=== PATIENT | female | born 1980 | race Two or more races ===

== ENCOUNTER 2016-11-20 11:13 | Emergency (ER) | payer OTHER ==
[~2016-11-20] VITALS: Ht 152.4 cm; Wt 61.2 kg
--- NOTE | 2016-11-20 11:39 | ED.ADGEN ---
Past History Past Medical History: Anxiety, Depression Past Surgical History: Appendectomy, Cholecystectomy Alcohol Use: None Drug Use: None Adult General Chief Complaint Chief Complaint ABDOMINAL PAIN HPI HPI Patient is a 35 year old F who presents with abdominal pain, vomiting and diarrhea since this AM. "similar to previous bowel obstructions" Severe R sided abdominal pain. Pt has had appendectomy, cholecystectomy, and R colon resection ? noncancerous tumor. Since then has had episodes of bowel obstruction from [place] per pt. Last admission approx 1 year ago for same symptoms Review of Systems Review of Systems Constitutional: Denies fever or chills Eyes: Denies change in visual acuity, redness, or eye pain HENT: Denies nasal congestion or sore throat Respiratory: Denies cough or shortness of breath Cardiovascular: No additional information not addressed in HPI GI: abdominal pain , vomiting and diarrhea : Denies dysuria or hematuria Musculoskeletal: Denies joint pain [ Integument: Denies rash or skin lesions Neurologic: Denies headache, focal weakness or sensory changes Current Medications Current Medications Current Medications Medications (Trade) Dose Ordered Sig/Elin Start Time Stop Time Status Last Admin Dose Admin Iohexol (Omnipaque 300 Mg/ml) 75 ml 1X ONCE 11/20/16 14:15 11/20/16 14:16 DC 11/20/16 14:44 75 ML Morphine Sulfate (Morphine 4mg Syringe) 4 mg 1X ONCE 11/20/16 18:15 11/20/16 18:16 DC 11/20/16 18:05 4 MG Ondansetron HCl (Zofran) 4 mg 1X ONCE 11/20/16 16:40 11/20/16 16:41 DC 11/20/16 16:28 4 MG Sodium Chloride 1,000 ml @ 1,000 mls/hr 1X ONCE 11/20/16 11:45 11/20/16 12:44 DC 11/20/16 11:55 1,000 MLS/HR Allergies Allergies Allergies Coded Allergies Type Severity Reaction Last Updated Verified metoclopramide Allergy Severe Shortness of Air 11/11/15 Yes Physical Exam Physical Exam Constitutional: Well developed, well nourished, HENT: Normocephalic, atraumatic, bilateral external ears normal, oropharynx moist, no oral exudates, nose normal. Eyes: PERRL, EOMI, conjunctiva normal, no discharge. Neck: Normal range of motion, no tenderness, supple, no stridor. Cardiovascular:Heart rate regular rhythm, no murmur Lungs & Thorax: Bilateral breath sounds clear to auscultation Abdomen: Hypoactive BS mild distension, soft RUQ, RLQ tenderness, no guarding, no rebound Skin: Warm, dry, no erythema, no rash. Back: No tenderness, no CVA tenderness. Extremities: No tenderness, no cyanosis, no clubbing, ROM intact, no edema. Neurologic: Alert and oriented X 3, normal motor function, normal sensory function, no focal deficits noted. Psychologic: Affect normal, judgement normal, mood normal. Current Patient Data Vital Signs Vital Signs Date Time Temp Pulse Resp B/P (MAP) Pulse Ox O2 Delivery O2 Flow Rate FiO2 11/20/16 18:05 16 11/20/16 12:55 83 102/66 (78) 100 11/20/16 11:24 98.2 Room Air Lab Results Laboratory Tests Test 11/20/16 11:55 11/20/16 12:25 11/20/16 12:27 White Blood Count 8.9 x10^3/uL (4.0-11.0) Red Blood Count 5.32 x10^6/uL (3.50-5.40) Hemoglobin 15.2 g/dL (12.0-15.5) Hematocrit 46.2 % (36.0-47.0) Mean Corpuscular Volume 87 fL (79-100) Mean Corpuscular Hemoglobin 29 pg (25-35) Mean Corpuscular Hemoglobin Concent 33 g/dL (31-37) Red Cell Distribution Width 13.5 % (11.5-14.5) Platelet Count 233 x10^3/uL (140-400) Neutrophils (%) (Auto) 84 % (31-73) H Lymphocytes (%) (Auto) 13 % (24-48) L Monocytes (%) (Auto) 2 % (0-9) Eosinophils (%) (Auto) 0 % (0-3) Basophils (%) (Auto) 0 % (0-3) Neutrophils # (Auto) 7.5 x10^3uL (1.8-7.7) Lymphocytes # (Auto) 1.1 x10^3/uL (1.0-4.8) Monocytes # (Auto) 0.2 x10^3/uL (0.0-1.1) Eosinophils # (Auto) 0.0 x10^3/uL (0.0-0.7) Basophils # (Auto) 0.0 x10^3/uL (0.0-0.2) Lactic Acid Level 0.9 mmol/L (0.4-2.0) Urine Collection Type Unknown Urine Color Flora Urine Clarity Cloudy Urine pH 5.5 Urine Specific [place] 1.020 Urine Protein 30 mg/dl (NEG-TRACE) Urine Glucose (UA) Neg mg/dL (NEG) Urine Ketones (Stick) 40 mg/dL (NEG) Urine Blood Large (NEG) Urine Nitrite Neg (NEG) Urine Bilirubin Neg (NEG) Urine Urobilinogen Dipstick 0.2 mg/dL (0.2 mg/dL) Urine Leukocyte Esterase Neg (NEG) Urine RBC >40 /HPF (0-2) Urine WBC Occ /HPF (0-4) Urine Squamous Epithelial Cells Occ /LPF Urine Bacteria Few /HPF (0-FEW) Urine Mucus Marked /LPF Maternal Serum HCG Beta Subunit 1 mIU/mL (0-6) Sodium Level 138 mmol/L (136-145) Potassium Level 4.0 mmol/L (3.5-5.1) Chloride Level 103 mmol/L (98-107) Carbon Dioxide Level 25 mmol/L (21-32) Anion Gap 10 (6-14) Blood Urea Nitrogen 14 mg/dL (7-20) Creatinine 0.7 mg/dL (0.6-1.0) Estimated GFR (Cockcroft-Gault) 94.2 BUN/Creatinine Ratio 20 (6-20) Glucose Level 134 mg/dL (70-99) H Calcium Level 9.0 mg/dL (8.5-10.1) Total Bilirubin 0.5 mg/dL (0.2-1.0) Aspartate Amino Transferase (AST) 21 U/L (15-37) Alanine Aminotransferase (ALT) 35 U/L (14-59) Alkaline Phosphatase 74 U/L (46-116) Total Protein 7.7 g/dL (6.4-8.2) Albumin 4.0 g/dL (3.4-5.0) Albumin/Globulin Ratio 1.1 (1.0-1.7) Lipase 113 U/L (73-393) EKG EKG [] Radiology/Procedures Radiology/Procedures [address] [place] [id number] IMAGING REPORT Signed PATIENT: JUJU KAUFFMAN ACCOUNT: [id number] : 1980 LOCATION: ER AGE: 35 SEX: F EXAM STATUS: DEP ER ORD. PHYSICIAN: DEN CAGLE MD REASON: Check NG tube placement PROCEDURE: CHEST AP ONLY Indication: NG tube placement. Time of exam 1849 hours. NG tube passes below the diaphragm and has the tip directed towards the right in the region of the gastric body. The lungs are clear. No effusion or pneumothorax is seen. Impression: Satisfactory NG tube placement. DICTATED AND SIGNED BY: KELLEY JONES MD DATE: 11/21/16717 CC: DEN CAGLE MD; MAIDA YAN DO, MPH ~ [address] [address] IMAGING REPORT Signed PATIENT: JUJU KAUFFMAN ACCOUNT: [id number] : 1980 LOCATION: ER AGE: 35 SEX: F EXAM STATUS: REG ER ORD. PHYSICIAN: DEN CAGLE MD REASON: abdominal pain PROCEDURE: CT ABD PELV W/ IV CONTRST ONLY Exam performed: CT abdomen pelvis with contrast. History: Abdominal pain since this morning. Patient had appendix removed 11 years ago with partial colectomy. Date of service: 11/20/16. Comparison: CT abdomen pelvis from 11/11/15. Technique: Contiguous helical acquisitions are obtained through the abdomen and pelvis during intravenous administration of 75 cc of Omnipaque 300. Sagittal and coronal reformatted images are obtained and reviewed. Findings: There is mild to moderate dilation of the small bowel extending up to the anastomosis in the right mid abdomen. The colon is relatively decompressed. There is no pneumoperitoneum. Lung bases are clear. The visualized heart is normal. The liver is normal in size and attenuation. There is a low attenuating 9 mm abnormality in the subdiaphragmatic right hepatic lobe this was not clearly identified on the previous exam. The spleen and pancreas are normal. Cholecystectomy. Both adrenal glands and bilateral kidneys are normal in size with symmetric excretion of contrast via both kidneys. There is no hydronephrosis or nephrolithiasis. No perinephric stranding. Aorta is normal in caliber without aneurysm. No retroperitoneal or mesenteric lymphadenopathy. The urinary bladder is partially decompressed. The uterus is retroverted. No adnexal masses or fluid. No free or focal fluid collections or pelvic lymphadenopathy seen. Interrogation of bone windows demonstrates no bony abnormalities. Impression: 1. Findings compatible with small bowel obstruction with apparent transition in the central right abdomen at the level of anastomosis. No evidence of pneumoperitoneum. 2. Low attenuating subcentimeter abnormality in the subdiaphragmatic right hepatic lobe not clearly previously identified probably secondary to noncontrast technique. This could possibly represent a cyst or hemangioma, however is indeterminate. Triple phase contrast-enhanced CT or MRI may further characterize this lesion. PQRS Compliance Statement: One or more of the following individualized dose reduction techniques were utilized for this examination: 1. Automated exposure control 2. Adjustment of the mA and/or kV according to patient size 3. Use of iterative reconstruction technique The results were given to Dr. Cagle in the ER soon of the completion of the study at 3:17 PM [] Course & Med Decision Making Course & Med Decision Making Pertinent Labs and Imaging studies reviewed. (See chart for details) Vitals reviewed and stable Pt with small bowel obstruction on CT. Placed NGT in ER discussed with pt findings of labs and CT and recommend admission and pt agrees Called Dr. Cardenas medicine at [facility] and accepted pt for admission Called Dr. Ortiz surgery and made aware of pt and consult will see at [place] Pt medically stable for transfer and admission to [facility] Final Impression Final Impression SMALL BOWEL OBSTRUCTION[] Problems: Dragon Disclaimer Dragon Disclaimer This electronic medical record was generated, in whole or in part, using a voice recognition dictation system. DEN CAGLE MD November 20, 2016 11:39
[2016-11-20] MEDS ORDERED: IV NORMAL SALINE 1,000ML 1,000 ML IV ONE (11:45)
[2016-11-20 12:17] LABS: BASO % 0 % (0-3); EOS % 0 % (0-3); HEMATOCRIT 46.2 % (36.0-47.0); HEMOGLOBIN 15.2 g/dL (12.0-15.5); LYMPH # 1.1 x10^3/uL (1.0-4.8); LYMPH % 13 % (24-48); MEAN CORPUSCULAR HEMOGLOBIN 29 pg (25-35); MEAN CORPUSCULAR HGB CONC 33 g/dL (31-37); MEAN CORPUSCULAR VOLUME 87 fL (79-100); MONO # 0.2 x10^3/uL (0.0-1.1); MONO % 2 % (0-9); NEUT # 7.5 x10^3uL (1.8-7.7); NEUT % 84 % (31-73); PLATELET COUNT 233 x10^3/uL (140-400); RED BLOOD COUNT 5.32 x10^6/uL (3.50-5.40); RED CELL DISTRIBUTION WIDTH 13.5 % (11.5-14.5); WHITE BLOOD COUNT 8.9 x10^3/uL (4.0-11.0)
[2016-11-20] MEDS ORDERED: MORPHINE SULFATE 4 MG/ML DISP.SYRIN. IM ONE (12:45)
[2016-11-20] MEDS ORDERED: ONDANSETRON PF 4 MG/2 ML VIAL. IV ONE ×2 (12:45→16:40)
[2016-11-20 12:55] VITALS: BP 102/66
[2016-11-20] MEDS ORDERED: MORPHINE SULFATE 4 MG/ML DISP.SYRIN. IV ONE ×2 (13:00→18:15)
[2016-11-20 13:03] LABS: ALBUMIN/GLOBULIN RATIO 1.1 (1.0-1.7); CREATININE 0.7 mg/dL (0.6-1.0); GFR 94.2; TOTAL BILIRUBIN 0.5 mg/dL (0.2-1.0); TOTAL PROTEIN 7.7 g/dL (6.4-8.2)
[2016-11-20 13:06] LABS: BACTERIA,URINE FEW /HPF (0-FEW); BILIRUBIN,URINE NEG (NEG); CLARITY,URINE CLOUDY; COLOR,URINE AMBER; GLUCOSE,URINE NEG (NEG); NITRITE,URINE NEG (NEG); RBC,URINE >40 /HPF (0-2); SQUAMOUS EPITHELIAL CELL,UR OCC /LPF; UROBILINOGEN,URINE 0.2 mg/dL (0.2 mg/dL); WBC,URINE OCC /HPF (0-4)
[2016-11-20] MEDS ORDERED: IOHEXOL 300 MG/ML 75 ML VIAL. IV ONE (14:15)
--- NOTE | 2016-11-20 15:22 | RAD ---
Exam performed: CT abdomen pelvis with contrast. History: Abdominal pain since this morning. Patient had appendix removed 11 years ago with partial colectomy. Date of service: 11/20/16. Comparison: CT abdomen pelvis from 11/11/15. Technique: Contiguous helical acquisitions are obtained through the abdomen and pelvis during intravenous administration of 75 cc of Omnipaque 300. Sagittal and coronal reformatted images are obtained and reviewed. Findings: There is mild to moderate dilation of the small bowel extending up to the anastomosis in the right mid abdomen. The colon is relatively decompressed. There is no pneumoperitoneum. Lung bases are clear. The visualized heart is normal. The liver is normal in size and attenuation. There is a low attenuating 9 mm abnormality in the subdiaphragmatic right hepatic lobe this was not clearly identified on the previous exam. The spleen and pancreas are normal. Cholecystectomy. Both adrenal glands and bilateral kidneys are normal in size with symmetric excretion of contrast via both kidneys. There is no hydronephrosis or nephrolithiasis. No perinephric stranding. Aorta is normal in caliber without aneurysm. No retroperitoneal or mesenteric lymphadenopathy. The urinary bladder is partially decompressed. The uterus is retroverted. No adnexal masses or fluid. No free or focal fluid collections or pelvic lymphadenopathy seen. Interrogation of bone windows demonstrates no bony abnormalities. Impression: 1. Findings compatible with small bowel obstruction with apparent transition in the central right abdomen at the level of anastomosis. No evidence of pneumoperitoneum. 2. Low attenuating subcentimeter abnormality in the subdiaphragmatic right hepatic lobe not clearly previously identified probably secondary to noncontrast technique. This could possibly represent a cyst or hemangioma, however is indeterminate. Triple phase contrast-enhanced CT or MRI may further characterize this lesion. PQRS Compliance Statement: One or more of the following individualized dose reduction techniques were utilized for this examination: 1. Automated exposure control 2. Adjustment of the mA and/or kV according to patient size 3. Use of iterative reconstruction technique The results were given to Dr. Cagle in the ER soon of the completion of the study at 3:17 PM
--- NOTE | 2016-11-20 18:25 | ACF ---
Admission Criteria Forms ABDOMINAL PAIN Clinical Indications for Admission to Inpatient Care (Place 'X' for any and all applicable criteria): Admission is indicated for ANY ONE of the following(1)(2)(3)(4)(5): [X]I. Inpatient admission required rather than observation care (Also use Abdominal Pain: Observation Care, as appropriate) because of ANY ONE of the following: [ ]a) Severe pain requiring acute inpatient management [X]b) Identification of etiology/finding that requires inpatient care (eg, aortic dissection, free air) [ ]c) Absent bowel sounds with complete ileus(6) [ ]d) Suspected toxic megacolon [ ]e) Severe electrolyte abnormalities requiring inpatient care [ ]f) High fever or infection requiring inpatient admission as indicated by ANY ONE of following(7)(8): [ ] i) Appropriate outpatient or observational care antimicrobial treatment unavailable, not effective, or not feasible [ ] ii) Documented bacteremia [ ] iii) Temperature > 104.9 degrees F (oral) [ ] iv) T >103.1 F (oral) or < 96.8 F(rectal) that does not respond to all emergency treatment measures [ ]g) Signs of intestinal obstruction [B] [ ]h) Hemodynamic instability [ ]i) IV fluid to replace significant ongoing losses (greater than 3 L/m2 per day) (12)(13) [ ]j) Percutaneous or open drainage (eg, abscess, biliary tract ) procedures [ ]k) Parenteral nutrition regimen that must be implemented on inpatient basis [X]l) Other condition,treatment or monitoring requiring inpatient admission. [ ]II. Peritoneal signs present [ ]III. Surgery needed that cannot be performed on an ambulatory basis. [ ]IV. Evaluation requires patient to not eat or drink for extended period ( eg, more than 24 hours). [ ]V. Contraindications and/or Inappropriate clinical situations for Observational Care in patients with abdominal pain, when ANY ONE of the following is required: [ ]a) Thorough evaluation is required to prevent catastrophic events due to delays in diagnosing (e.g.Mesenteric ischemia) 1,3 [ ]b) Patient with severe pathology or with chronic symptoms unlikely to improve in the ED stay (3) [ ]. General contraindications and/or Inappropriate clinical situations for Observational Care in patients with abdominal pain, when ANY ONE of the following is required: [ ]a) Prediction of prolongation of LOS based on ANY ONE of the following may be considered as a contraindication for observational care 2, 3, 4, 5, 6, 7, 8, 9, 10, 11 [ ]i) Age > 65 yrs. [ ]ii) Patient arriving by ambulance [ ]iii) Patient with high acuity [ ]iv) Patient requiring vital sign monitoring [ ]v) Patient on IV medication [ ]b) Systolic blood pressures 180mmHg 3,12 [ ]c) Patient with altered mental status including delirium and other alteration of consciousness, (3) [ ]d) Patient whose discharge disposition will be to a detention home or rehabilitation home should not be managed in Emergency Department Observation Unit. CMS rule requires 3 days hospital stay before such placement.3,13 [ ]e) Patient with failure to thrive due to broad array of etiologies 3,16,17 [ ]f) Inability to ambulate 3,14 Extended stay beyond goal length of stay may be needed for(2)(3): [ ]a) Persistent abdominal pain with suspected intra-abdominal process [ ]b) Diagnosed condition requiring continued stay (e.g., pancreatitis, complicated diverticulitis) [ ]c) Surgery (e.g., colectomy) The original [facility] content created by [employer] has been revised. The portions of the content which have been revised are identified through the use of italic text or in bold, and [facility] has neither reviewed nor approved the modified material.All other unmodified content is copyright [facility]. Please see references footnoted in the original [facility] edition 2016 Admission Criteria Met?: Yes MOOK MUNOZ November 20, 2016 18:25
--- NOTE | 2016-11-21 07:21 | RAD ---
Indication: NG tube placement. Time of exam 1849 hours. NG tube passes below the diaphragm and has the tip directed towards the right in the region of the gastric body. The lungs are clear. No effusion or pneumothorax is seen. Impression: Satisfactory NG tube placement.
== END 2016-11-20 20:20 | disposition short-term general hospital (02) ==
LOC: ER 11:13
DX: K56.69 Other intestinal obstruction (principal); Z90.49 Acquired absence of other specified parts of digestive tract; Z88.8 Allergy status to other drugs, medicaments and biological substances
CPT/HCPCS: 36415; 43752; 71010; 74177; 80053; 81001; 83605; 83690; 84702; 85027; 87040; 96361; 96372; 96374; 96375; 96376; 99285; J2270; J2405; Q9967; J7030

== ENCOUNTER 2016-12-18 15:21 | Emergency (ER) | payer OTHER ==
[~2016-12-18] VITALS: Ht 152.4 cm; Wt 58.1 kg
[2016-12-18 15:30] VITALS: BP 112/71
--- NOTE | 2016-12-18 16:08 | PHYS DOC ---
General Chief Complaint: ABDOMINAL PAIN Stated Complaint: ABDOMINAL PAIN Time Seen by MD: 15:52 Source: patient Exam Limitations: language barrier (Nigerian is her second language she speaks primarily Vincentian) Problems: History of Present Illness Initial Comments Patient is a 35-year-old female who comes to the ED for evaluation of abdominal discomfort. Patient has history of small bowel obstructions, she was seen here November 10 and November 20 of this year diagnosed with small bowel obstructions and transferred to [facility] each time for further evaluation. Patient follows at [facility] so she was discharged each time to follow-up on post. Patient states that today when she went to [facility] to get specialty referrals she was sent to the ED for further evaluation. Here in the ED she denies any new or progressive symptoms. She has tenderness at the suprapubic region which has been chronic but has no abdominal distention and burping discomfort retching or vomiting. She 's been taking meds as prescribed she has no fever chills sweats or myalgias. My discussions with her it is apparent that she has no new or acute symptoms. I discussed emergency department evaluation, I advised her that we could repeat her CT scan and blood work which has been done twice this past month already but that would be low yield for her. In the absence of acute symptoms which he needs his general surgical or gastrointestinal evaluation to determine the etiologies and corrective treatment for her recurrent small bowel obstructions. She does refuse acute evaluation in the ED based upon this discussion and is in agreement that she needs to see specialists. It is possible that the language barrier may have added some confusion to the situation causing her to be sent back to the emergency department when it was unnecessary. Timing/Duration: changing over time Severity: mild Modifying Factors: improves with other Associated Symptoms: other Allergies: Coded Allergies: metoclopramide (Verified Allergy, Severe, Shortness of Air, 11/11/15) Past Medical History Medical History: other (anxiety, depression, carcinoma) Surgical History: cancer surgery (right colectomy for carcinoma 2005 and no chemotherapy or radiation), cholecystectomy Social History Smoker: non-smoker Alcohol: none Drugs: none Review of Systems Constitutional: denies chills, denies fever Respiratory: denies cough, denies shortness of breath Cardiovascular: denies chest pain, denies palpitations Gastrointestinal: see HPI Genitourinary: denies dysuria, denies frequency, denies hematuria Musculoskeletal: denies back pain, denies joint swelling, denies neck pain Psychiatric/Neurological: denies headache, denies numbness, denies paresthesia Physical Exam General Appearance: WD/WN, no apparent distress Eyes: bilateral eye normal inspection, bilateral eye PERRL, bilateral eye EOMI Ear, Nose, Throat: hearing grossly normal, normal ENT inspection Neck: full range of motion, supple Respiratory: lungs clear, normal breath sounds Cardiovascular: normal peripheral pulses, regular rate, rhythm Gastrointestinal: normal bowel sounds, soft (nondistended, mild suprapubic tenderness no rebound guarding or mass bowel sounds are normal no organomegaly noted) Back: no CVA tenderness, no vertebral tenderness Extremities: non-tender, normal inspection Neurologic/Psychiatric: basketball 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 Unfortunately she needs to return to [facility] so she can get appropriate referrals she expressed agreement and understanding of this. Departure Time of Disposition: 16:06 Disposition: 01 HOME, SELF-CARE Diagnosis: Screening medical exam, h/o SBO Condition: GOOD Additional Instructions: As discussed no acute workup is necessary as you're not currently having symptoms of bowel obstruction. Continue current medications and dietary changes. Follow-up at [facility] to request further outpatient specialist workup (general surgery, GI) to determine cause and course of treatment for your recent bowel obstructions. Return to the ED with new or returning symptoms. RAMAN CERNA DO Dec 18, 2016 16:08
== END 2016-12-18 16:29 | disposition home or self-care (01) ==
LOC: ER 15:21
DX: Z00.8 Encounter for other general examination (principal); K56.69 Other intestinal obstruction; Z90.49 Acquired absence of other specified parts of digestive tract; Z90.710 Acquired absence of both cervix and uterus; Z88.8 Allergy status to other drugs, medicaments and biological substances
CPT/HCPCS: 99281

== ENCOUNTER 2017-03-20 08:40 | Emergency (ER) | payer OTHER ==
[~2017-03-20] VITALS: Ht 152.4 cm; Wt 58.1 kg
--- NOTE | 2017-03-20 09:15 | PHYS DOC ---
Past History Past Medical History: Cancer Past Surgical History: Appendectomy, Cholecystectomy, Other Alcohol Use: None Drug Use: None Adult General Chief Complaint Chief Complaint: NAUSEA/VOMITING/DIARRHEA HPI HPI Patient is a 36 year old F who presents with nausea/vomiting/diarrhea and abdominal pain. Patient states that yesterday she developed abdominal pain with nausea/vomiting/diarrhea. Patient denies any fevers. Patient denies any chest pain or shortness of breath. Patient denies any dysuria. Patient states she is a history of colectomy secondary to cancer. 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 Review of Systems Review of Systems GEN: Denies fevers, chills, sweats HEENT: Denies blurred vision, sore throat CV: Denies chest pain RESP: Denies shortness of air, cough GI: n/v/d with abdominal pain NEURO: Denies confusion, dizziness MSK: Denies weakness, joint pain/swelling Allergies Allergies Allergies Coded Allergies Type Severity Reaction Last Updated Verified metoclopramide Allergy Severe Shortness of Air 03/20/17 Yes Physical Exam Physical Exam GEN.: No apparent distress. Alert and oriented. HEENT: Head is normocephalic, atraumatic NECK: Supple. LUNGS: CTAB. HEART: RRR, S1, S2 present. Peripheral pulses intact ABDOMEN: Soft, generalized abdominal tenderness, no focal tenderness, no rebound tenderness, no distention. Hypoactive bowel sounds. EXTREMITIES: Without any cyanosis. NEUROLOGIC: Normal speech, normal tone PSYCHIATRIC: Normal affect, normal mood. SKIN: No ulcerations Current Patient Data Vital Signs Vital Signs Date Time Temp Pulse Resp B/P (MAP) Pulse Ox O2 Delivery O2 Flow Rate FiO2 03/20/17 08:51 97.8 87 17 98 Room Air Lab Results Laboratory Tests Test 03/20/17 09:10 03/20/17 09:52 03/20/17 10:07 White Blood Count 5.9 x10^3/uL Red Blood Count 5.27 x10^6/uL Hemoglobin 15.2 g/dL Hematocrit 45.7 % Mean Corpuscular Volume 87 fL Mean Corpuscular Hemoglobin 29 pg Mean Corpuscular Hemoglobin Concent 33 g/dL Red Cell Distribution Width 12.8 % Platelet Count 184 x10^3/uL Neutrophils (%) (Auto) 85 % Lymphocytes (%) (Auto) 11 % Monocytes (%) (Auto) 3 % Eosinophils (%) (Auto) 1 % Basophils (%) (Auto) 0 % Neutrophils # (Auto) 5.1 x10^3uL Lymphocytes # (Auto) 0.6 x10^3/uL Monocytes # (Auto) 0.2 x10^3/uL Eosinophils # (Auto) 0.0 x10^3/uL Basophils # (Auto) 0.0 x10^3/uL Sodium Level 138 mmol/L Potassium Level 3.6 mmol/L Chloride Level 101 mmol/L Carbon Dioxide Level 28 mmol/L Anion Gap 9 Blood Urea Nitrogen 11 mg/dL Creatinine 0.8 mg/dL Estimated GFR (Cockcroft-Gault) 80.3 BUN/Creatinine Ratio 14 Glucose Level 105 mg/dL Calcium Level 9.0 mg/dL Total Bilirubin 0.6 mg/dL Aspartate Amino Transf (AST/SGOT) 27 U/L Alanine Aminotransferase (ALT/SGPT) 41 U/L Alkaline Phosphatase 115 U/L Total Protein 7.7 g/dL Albumin 3.9 g/dL Albumin/Globulin Ratio 1.0 Lipase 76 U/L Urine Collection Type Unknown Urine Color Yellow Urine Clarity Hazy Urine pH 8.5 Urine Specific [place] 1.015 Urine Protein Trace Urine Glucose (UA) Neg mg/dL Urine Ketones (Stick) 40 mg/dL Urine Blood Neg Urine Nitrite Neg Urine Bilirubin Neg Urine Urobilinogen Dipstick 0.2 mg/dL Urine Leukocyte Esterase Neg Urine RBC Rare /HPF Urine WBC Rare /HPF Urine Squamous Epithelial Cells Many /LPF Urine Bacteria Few /HPF Urine Mucus Marked /LPF Bedside Urine HCG, Qualitative hcg negative Current Medications Medications (Trade) Dose Ordered Sig/Elin Route PRN Reason Start Time Stop Time Status Last Admin Dose Admin Sodium Chloride 1,000 ml @ 1,000 mls/hr 1X ONCE IV 03/20/17 09:30 03/20/17 10:30 DC 03/20/17 09:21 Fentanyl Citrate (Fentanyl 2ml Vial) 50 mcg 1X ONCE IV 03/20/17 09:30 03/20/17 09:31 DC 03/20/17 09:22 Ondansetron HCl (Zofran) 4 mg 1X ONCE IV 03/20/17 09:30 03/20/17 09:31 DC 03/20/17 09:22 Iohexol (Omnipaque 300 Mg/ml) 75 ml 1X ONCE IV 03/20/17 09:30 03/20/17 09:31 DC 03/20/17 10:11 Fentanyl Citrate (Fentanyl 2ml Vial) 50 mcg 1X ONCE IV 03/20/17 11:15 03/20/17 11:16 DC 03/20/17 10:57 Ondansetron HCl (Zofran) 4 mg 1X ONCE IV 03/20/17 11:15 03/20/17 11:16 DC 03/20/17 10:57 Lidocaine HCl 15 ml STK-MED ONCE .ROUTE 03/20/17 11:07 03/20/17 11:08 DC EKG EKG [] Radiology/Procedures Radiology/Procedures CT abd and pelvis: IMPRESSION: Mid to distal small bowel obstruction with a transition point anteriorly in the upper pelvis, likely due to an adhesion.[] Course & Med Decision Making Course & Med Decision Making Pertinent Labs and Imaging studies reviewed. (See chart for details) ED course: Patient was seen and examined emergency room CBC, CMP, UA, and urine break, lipase, CT scan and pelvis were ordered 1103: Patient was reevaluated and updated on CT findings for small bowel ejection and discussed the need to place NG tube and transferred to [facility]. Patient is comfortable with having an NG tube placed and being transferred. 1153: Discussed CC/HP/PMH with Dr. GRIMM and recommends admit [] 1153: Dr. Nguyen was paged [] Dragon Disclaimer Dragon Disclaimer This chart was dictated in whole or in part using Voice Recognition software in a busy, high-work load, and often noisy Emergency Department environment. It may contain unintended and wholly unrecognized errors or omissions. Departure Departure: Impression: Primary Impression: Small bowel obstruction Disposition: XFER SHT-TRM HOSP (Dr Grimm as accepting ) Condition: STABLE Referrals: MAIDA YAN DO, MPH (PCP) GUILLE TODD DO Mar 20, 2017 09:15
[2017-03-20 09:22] LABS: BASO % 0 % (0-3); EOS % 1 % (0-3); HEMATOCRIT 45.7 % (36.0-47.0); HEMOGLOBIN 15.2 g/dL (12.0-15.5); LYMPH # 0.6 x10^3/uL (1.0-4.8); LYMPH % 11 % (24-48); MEAN CORPUSCULAR HEMOGLOBIN 29 pg (25-35); MEAN CORPUSCULAR HGB CONC 33 g/dL (31-37); MEAN CORPUSCULAR VOLUME 87 fL (79-100); MONO # 0.2 x10^3/uL (0.0-1.1); MONO % 3 % (0-9); NEUT # 5.1 x10^3uL (1.8-7.7); NEUT % 85 % (31-73); PLATELET COUNT 184 x10^3/uL (140-400); RED BLOOD COUNT 5.27 x10^6/uL (3.50-5.40); RED CELL DISTRIBUTION WIDTH 12.8 % (11.5-14.5); WHITE BLOOD COUNT 5.9 x10^3/uL (4.0-11.0)
[2017-03-20] MEDS ORDERED: IV NORMAL SALINE 1,000ML 1,000 ML IV ONE (09:30)
[2017-03-20] MEDS ORDERED: fentaNYL PF 100 MCG/2 ML VIAL IV ONE ×2 (09:30→11:15)
[2017-03-20] MEDS ORDERED: ONDANSETRON PF 4 MG/2 ML VIAL. IV ONE ×2 (09:30→11:15)
[2017-03-20] MEDS ORDERED: IOHEXOL 300 MG/ML 75 ML VIAL. IV ONE (09:30)
[2017-03-20 09:37] LABS: ALBUMIN 3.9 g/dL (3.4-5.0); CREATININE 0.8 mg/dL (0.6-1.0); GFR 80.3; POTASSIUM 3.6 mmol/L (3.5-5.1); TOTAL BILIRUBIN 0.6 mg/dL (0.2-1.0); TOTAL PROTEIN 7.7 g/dL (6.4-8.2)
[2017-03-20 10:22] LABS: BILIRUBIN,URINE NEG (NEG); CLARITY,URINE HAZY; COLOR,URINE YELLOW; GLUCOSE,URINE NEG (NEG); UROBILINOGEN,URINE 0.2 mg/dL (0.2 mg/dL)
[2017-03-20 10:23] LABS: BACTERIA,URINE FEW /HPF (0-FEW); NITRITE,URINE NEG (NEG); RBC,URINE RARE /HPF (0-2); SQUAMOUS EPITHELIAL CELL,UR MANY /LPF; WBC,URINE RARE /HPF (0-4)
--- NOTE | 2017-03-20 10:58 | RAD ---
CT of the abdomen and pelvis with contrast, 03/20/2017: History: Nausea, vomiting, diarrhea Multidetector CT imaging was performed following an IV bolus injection of iodinated contrast material. Comparison is made to a study from 11/20/2016. The gallbladder is surgically absent. No hepatic abnormality is seen. The pancreas shows no abnormality. The spleen is within normal limits in size. No renal or adrenal abnormality is detected. No abdominal or pelvic adenopathy is detected. The uterus is not enlarged. The ovaries contain tiny follicular cysts. The stomach and duodenum are not dilated. There is moderate distention of mid small bowel loops with fluid and gas. A transition point is evident anteriorly in the upper pelvis, best seen on coronal images 14 and 15 of series #3. There are small bowel loops distal to this level which are not dilated. The colon is predominantly collapsed. There are surgical sutures related to the right colon. No free air or free fluid is evident in the abdomen or pelvis. IMPRESSION: Mid to distal small bowel obstruction with a transition point anteriorly in the upper pelvis, likely due to an adhesion. PQRS Compliance Statement: One or more of the following individualized dose reduction techniques were utilized for this examination: 1. Automated exposure control 2. Adjustment of the mA and/or kV according to patient size 3. Use of iterative reconstruction technique
[2017-03-20] MEDS ORDERED: LIDOCAINE 2% VISCOUS 15 ML SOLUTION. ONE (11:07)
[2017-03-20] MEDS ORDERED: PROMETHAZINE IM 25 MG/ML VIAL IM ONE (12:45)
[2017-03-20] MEDS ORDERED: HYDROmorphone PF 1 MG/ML DISP.SYRIN ONE (12:51)
[2017-03-20] MEDS ORDERED: PROMETHAZINE 25 MG/ML VIAL IV ONE (12:51)
[2017-03-20] MEDS ORDERED: HYDROmorphone PF 1 MG/ML DISP.SYRIN IV ONE (13:00)
[2017-03-20 13:07] VITALS: BP 105/58
== END 2017-03-20 13:10 | disposition short-term general hospital (02) ==
LOC: ER 08:40
DX: K56.60 Unspecified intestinal obstruction (principal); Z90.49 Acquired absence of other specified parts of digestive tract; Z88.8 Allergy status to other drugs, medicaments and biological substances
CPT/HCPCS: 36415; 43752; 74177; 80053; 81001; 81025; 83690; 85025; 96361; 96372; 96374; 96375; 96376; 99285; J1170; J2405; J2550; J3010; Q9967; J7030

== ENCOUNTER 2017-08-29 08:59 | Emergency (ER) | payer OTHER ==
[~2017-08-29] VITALS: Ht 152.4 cm; Wt 60.3 kg
[2017-08-29] MEDS ORDERED: IV NORMAL SALINE 1,000ML 1,000 ML IV ONE ×2 (09:30→11:00)
[2017-08-29 09:45] LABS: BASO % 0 % (0-3); EOS # 0.1 x10^3/uL (0.0-0.7); EOS % 1 % (0-3); HEMATOCRIT 42.7 % (36.0-47.0); HEMOGLOBIN 14.4 g/dL (12.0-15.5); LYMPH # 1.4 x10^3/uL (1.0-4.8); LYMPH % 20 % (24-48); MEAN CORPUSCULAR HEMOGLOBIN 29 pg (25-35); MEAN CORPUSCULAR HGB CONC 34 g/dL (31-37); MEAN CORPUSCULAR VOLUME 86 fL (79-100); MONO # 0.3 x10^3/uL (0.0-1.1); MONO % 4 % (0-9); NEUT # 5.5 x10^3uL (1.8-7.7); NEUT % 75 % (31-73); PLATELET COUNT 213 x10^3/uL (140-400); RED BLOOD COUNT 4.95 x10^6/uL (3.50-5.40); RED CELL DISTRIBUTION WIDTH 12.8 % (11.5-14.5); WHITE BLOOD COUNT 7.3 x10^3/uL (4.0-11.0)
[2017-08-29] MEDS ORDERED: ONDANSETRON PF 4 MG/2 ML VIAL. IV ONE (10:00)
[2017-08-29 10:05] LABS: ALBUMIN 3.7 g/dL (3.4-5.0); CALCIUM 8.9 mg/dL (8.5-10.1); CREATININE 0.7 mg/dL (0.6-1.0); GFR 93.6; POTASSIUM 3.6 mmol/L (3.5-5.1); TOTAL BILIRUBIN 0.4 mg/dL (0.2-1.0); TOTAL PROTEIN 7.3 g/dL (6.4-8.2)
--- NOTE | 2017-08-29 10:43 | PHYS DOC ---
Past History Past Medical History: Cancer Past Surgical History: Appendectomy, Cholecystectomy, , Other Alcohol Use: None Drug Use: None Adult General Chief Complaint Chief Complaint: ABDOMINAL PAIN HPI HPI Patient is a 36 year old F who presents with intermittent sharp right lower quadrant abdominal pain that is similar to previous pain related to adhesions from previous surgeries. Her pain is been going on for about 1 week but is worse today. She did have a BM today which was normal. She did have one episode of vomiting before she came to the ED today. She has had her gallbladder, appendix, and part of her right colon removed. She also has had a C -section. Review of Systems Review of Systems Constitutional: Denies fever or chills [] Eyes: Denies change in visual acuity, redness, or eye pain [] HENT: Denies nasal congestion or sore throat [] Respiratory: Denies cough or shortness of breath [] Cardiovascular: No additional information not addressed in HPI [] GI: Negative except in history of present illness : Denies dysuria or hematuria [] Musculoskeletal: Denies back pain or joint pain [] Integument: Denies rash or skin lesions [] Neurologic: Denies headache, focal weakness or sensory changes [] Endocrine: Denies polyuria or polydipsia [] All other systems were reviewed and found to be within normal limits, except as documented in this note. Family History Family History No pertinent family medical history reported Current Medications Current Medications Current Medications Medications (Trade) Dose Ordered Sig/Elin Start Time Stop Time Status Last Admin Dose Admin Fentanyl Citrate (Fentanyl 2ml Vial) 50 mcg 1X ONCE 08/29/17 10:00 08/29/17 10:01 DC 08/29/17 09:49 50 MCG Ondansetron HCl (Zofran) 4 mg 1X ONCE 08/29/17 10:00 08/29/17 10:01 DC 08/29/17 09:48 4 MG Sodium Chloride 1,000 ml @ 1,000 mls/hr 1X ONCE 08/29/17 09:30 08/29/17 10:29 DC 08/29/17 09:47 1,000 MLS/HR Allergies Allergies Allergies Coded Allergies Type Severity Reaction Last Updated Verified metoclopramide Allergy Severe Shortness of Air 03/20/17 Yes Physical Exam Physical Exam Constitutional: Well developed, well nourished, no acute distress, non-toxic appearance. [] HENT: Normocephalic, atraumatic Eyes: EOMI, conjunctiva normal, no discharge. [] Neck: Normal range of motion, no tenderness, supple, no stridor. [] Cardiovascular:Heart rate regular rhythm Lungs & Thorax: Bilateral breath sounds clear to auscultation [] Abdomen: Mild tenderness to palpation in the right lower quadrant, normal bowel sounds, no other tenderness noted Skin: Warm, dry, no erythema, no rash. [] Back: No tenderness, no CVA tenderness. [] Extremities: No tenderness, no cyanosis, no clubbing, ROM intact, no edema. [] Neurologic: Alert and oriented X 3, normal motor function, normal sensory function, no focal deficits noted. [] Psychologic: Affect normal, judgement normal, mood normal. [] Current Patient Data Vital Signs Vital Signs Date Time Temp Pulse Resp B/P (MAP) Pulse Ox O2 Delivery O2 Flow Rate FiO2 08/29/17 10:25 77 18 99 Room Air 08/29/17 08:59 98.5 Lab Results Laboratory Tests Test 08/29/17 09:32 08/29/17 10:02 White Blood Count 7.3 x10^3/uL (4.0-11.0) Red Blood Count 4.95 x10^6/uL (3.50-5.40) Hemoglobin 14.4 g/dL (12.0-15.5) Hematocrit 42.7 % (36.0-47.0) Mean Corpuscular Volume 86 fL (79-100) Mean Corpuscular Hemoglobin 29 pg (25-35) Mean Corpuscular Hemoglobin Concent 34 g/dL (31-37) Red Cell Distribution Width 12.8 % (11.5-14.5) Platelet Count 213 x10^3/uL (140-400) Neutrophils (%) (Auto) 75 % (31-73) H Lymphocytes (%) (Auto) 20 % (24-48) L Monocytes (%) (Auto) 4 % (0-9) Eosinophils (%) (Auto) 1 % (0-3) Basophils (%) (Auto) 0 % (0-3) Neutrophils # (Auto) 5.5 x10^3uL (1.8-7.7) Lymphocytes # (Auto) 1.4 x10^3/uL (1.0-4.8) Monocytes # (Auto) 0.3 x10^3/uL (0.0-1.1) Eosinophils # (Auto) 0.1 x10^3/uL (0.0-0.7) Basophils # (Auto) 0.0 x10^3/uL (0.0-0.2) Sodium Level 139 mmol/L (136-145) Potassium Level 3.6 mmol/L (3.5-5.1) Chloride Level 103 mmol/L (98-107) Carbon Dioxide Level 28 mmol/L (21-32) Anion Gap 8 (6-14) Blood Urea Nitrogen 10 mg/dL (7-20) Creatinine 0.7 mg/dL (0.6-1.0) Estimated GFR (Cockcroft-Gault) 93.6 BUN/Creatinine Ratio 14 (6-20) Glucose Level 98 mg/dL (70-99) Calcium Level 8.9 mg/dL (8.5-10.1) Total Bilirubin 0.4 mg/dL (0.2-1.0) Aspartate Amino Transferase (AST) 27 U/L (15-37) Alanine Aminotransferase (ALT) 37 U/L (14-59) Alkaline Phosphatase 82 U/L (46-116) Total Protein 7.3 g/dL (6.4-8.2) Albumin 3.7 g/dL (3.4-5.0) Albumin/Globulin Ratio 1.0 (1.0-1.7) Lipase 113 U/L (73-393) POC Urine HCG, Qualitative hcg negative (Negative) EKG EKG [] Radiology/Procedures Radiology/Procedures Imaging was declined Course & Med Decision Making Course & Med Decision Making Pertinent Labs and Imaging studies reviewed. (See chart for details) Hang did have a by mouth challenge with fluids and she did well. Admission was declined this time. She does plan to return to the emergency room if she develops new or worsening symptoms. Dragon Disclaimer Dragon Disclaimer This electronic medical record was generated, in whole or in part, using a voice recognition dictation system. Departure Departure: Impression: Primary Impression: Abdominal pain Disposition: 01 HOME, SELF-CARE Condition: STABLE Referrals: MAIDA YAN DO, MPH (PCP) Patient Instructions: Small Bowel Obstruction Additional Instructions: Hang was seen in the emergency department for abdominal pain. No emergency medical condition was found on history or physical exam. She did have normal labs. She was treated with IV fluids and medication. Her pain was managed and she was able to tolerate oral fluids prior to discharge. She was encouraged to return the emergency room if she develops new or worsening symptoms. She is also advised follow-up with her primary care doctor as needed for further management. Scripts Promethazine Hcl (PROMETHAZINE HCL) 25 Mg Tablet 1 TAB PO PRN Q6HRS Y for NAUSEA/VOMITING for 7 Days, #20 TAB Prov: AMIE SAGASTUME MD 08/29/17 Problem Qualifiers Primary Impression: Abdominal pain Abdominal location: generalized Qualified Codes: R10.84 - Generalized abdominal pain AMIE SAGASTUME MD Aug 29, 2017 10:43
[2017-08-29] MEDS ORDERED: ONDANSETRON ODT 4 MG TAB.RAPDIS PO ONE (11:10)
[2017-08-29] MEDS ORDERED: PROM25TA10 PO (12:35)
[2017-08-29 12:45] VITALS: BP 90/46
== END 2017-08-29 12:45 | disposition home or self-care (01) ==
LOC: ER 08:59
DX: R10.31 Right lower quadrant pain (principal); R11.10 Vomiting, unspecified; Z90.49 Acquired absence of other specified parts of digestive tract; Z98.890 Other specified postprocedural states; Z88.8 Allergy status to other drugs, medicaments and biological substances
CPT/HCPCS: 36415; 80053; 81025; 83690; 85025; 96361; 96374; 96375; 99285; J2405; J3010; Q0162; J7030

== ENCOUNTER 2017-11-06 08:11 | Emergency (ER) | payer OTHER ==
[~2017-11-06] VITALS: Ht 152.4 cm; Wt 60.3 kg
[~2017-11-06 08:11] MED LIST: PROM25TA10 PO
[2017-11-06] MEDS ORDERED: IV NORMAL SALINE 1,000ML 1,000 ML IV SCH (08:25)
[2017-11-06] MEDS ORDERED: ONDANSETRON PF 4 MG/2 ML VIAL. IV ONE (09:00)
[2017-11-06] MEDS ORDERED: FAMOTIDINE 20 MG/2 ML VIAL IVP ONE (09:00)
[2017-11-06 09:02] LABS: BASO % 0 % (0-3); EOS # 0.1 x10^3/uL (0.0-0.7); EOS % 1 % (0-3); HEMATOCRIT 42.9 % (36.0-47.0); HEMOGLOBIN 14.4 g/dL (12.0-15.5); LYMPH # 1.7 x10^3/uL (1.0-4.8); LYMPH % 23 % (24-48); MEAN CORPUSCULAR HEMOGLOBIN 29 pg (25-35); MEAN CORPUSCULAR HGB CONC 34 g/dL (31-37); MEAN CORPUSCULAR VOLUME 86 fL (79-100); MONO # 0.3 x10^3/uL (0.0-1.1); MONO % 4 % (0-9); NEUT # 5.3 x10^3uL (1.8-7.7); NEUT % 71 % (31-73); PLATELET COUNT 216 x10^3/uL (140-400); RED BLOOD COUNT 4.96 x10^6/uL (3.50-5.40); RED CELL DISTRIBUTION WIDTH 12.9 % (11.5-14.5); WHITE BLOOD COUNT 7.5 x10^3/uL (4.0-11.0)
[2017-11-06 09:36] LABS: PREG TEST PT QUAL NEGATIVE (NEG)
[2017-11-06 09:40] LABS: ALBUMIN 3.2 g/dL (3.4-5.0); CREATININE 0.6 mg/dL (0.6-1.0); DIRECT BILIRUBIN 0.1 mg/dL (0.0-0.2); GFR 111.9; POTASSIUM 4.1 mmol/L (3.5-5.1); TOTAL BILIRUBIN 0.3 mg/dL (0.2-1.0); TOTAL PROTEIN 6.3 g/dL (6.4-8.2)
[2017-11-06 09:49] LABS: BACTERIA,URINE FEW /HPF (0-FEW); BILIRUBIN,URINE NEG (NEG); CLARITY,URINE HAZY; COLOR,URINE YELLOW; GLUCOSE,URINE NEG (NEG); NITRITE,URINE NEG (NEG); RBC,URINE OCC /HPF (0-2); UROBILINOGEN,URINE 0.2 mg/dL (0.2 mg/dL)
[2017-11-06 09:50] LABS: SQUAMOUS EPITHELIAL CELL,UR MOD /LPF
[2017-11-06] MEDS ORDERED: FAMO-63 PO (10:12)
[2017-11-06] MEDS ORDERED: ONDA4TAB7 PO (10:12)
--- NOTE | 2017-11-06 10:12 | PHYS DOC ---
Past History Past Medical History: Other Past Surgical History: Appendectomy, Cholecystectomy, Other Alcohol Use: None Drug Use: None Adult General Chief Complaint Chief Complaint: ABDOMINAL PAIN HPI HPI This a pleasant 28-year-old female presenting the emergency department today with epigastric abdominal pain that she describes as a sharp shooting pain that is nonradiating mild to moderate worse with eating and improved with not eating. History of appendectomy and cholecystectomy and reports hx of partial bowel obstruction. She denies being . Her vomitus is nonbilious and nonbloody. She has had regular normal bowel movements in the past 24 hours. Review of systems is negative for chest pain shortness of breath fevers chills. All other review of systems is negative unless otherwise noted in history of present illness. ED course: 28-year-old female presenting with epigastric abdominal pain. Normal vital signs. Well-appearing individual nontoxic. Abdomen is soft nondistended nontender to palpation without rebound tenderness or guarding. Surgical scars present. Otherwise unremarkable exam. Patient was given IV fluids nausea and pain meds in the emergency department. On reexamination her abdomen continues to be soft and nontender. She is feeling much better. Blood work unremarkable. CT the abdomen pelvis unremarkable. The patient has been examined and was not found to have an emergency medical condition. The patient was then discharged home in stable condition to follow up with their primary care physician over the next 2-3 days. They were to return if their symptoms worsened or if they were concerned for any reason. [id number] discharge instructions and return precautions were given. Patient's questions were answered to their satisfaction. Patient is comfortable with plan. Review of Systems Review of Systems SEE ABOVE. Current Medications Current Medications Current Medications Medications (Trade) Dose Ordered Sig/Elin Start Time Stop Time Status Last Admin Dose Admin Famotidine (Pepcid Vial) 20 mg 1X ONCE 11/06/17 09:00 11/06/17 09:01 DC 11/06/17 08:37 20 MG Fentanyl Citrate (Fentanyl 2ml Vial) 25 mcg PRN Q15MIN PRN 11/06/17 08:30 11/07/17 08:29 11/06/17 10:00 25 MCG Ondansetron HCl (Zofran) 4 mg 1X ONCE 11/06/17 09:00 11/06/17 09:01 DC 11/06/17 08:38 4 MG Sodium Chloride 1,000 ml @ 1,000 mls/hr Q1H 11/06/17 08:25 11/06/17 09:24 DC 11/06/17 08:38 1,000 MLS/HR Allergies Allergies Allergies Coded Allergies Type Severity Reaction Last Updated Verified metoclopramide Allergy Severe Shortness of Air 03/20/17 Yes Physical Exam Physical Exam SEE ABOVE Constitutional: Well developed, well nourished, no acute distress, non-toxic appearance. [] HENT: Normocephalic, atraumatic, bilateral external ears normal, oropharynx moist, no oral exudates, nose normal. [] Eyes: PERRLA, EOMI, conjunctiva normal, no discharge. [] Neck: Normal range of motion, no tenderness, supple, no stridor. [] Cardiovascular:Heart rate regular rhythm, no murmur [] Lungs & Thorax: Bilateral breath sounds clear to auscultation [] Abdomen: Bowel sounds normal, soft, no tenderness, no masses, no pulsatile masses. Negative McBurney's point. Negative Babcock sign Skin: Warm, dry, no erythema, no rash. [] Back: No tenderness, no CVA tenderness. [] Extremities: No tenderness, no cyanosis, no clubbing, ROM intact, no edema. [] Neurologic: Alert and oriented X 3, normal motor function, normal sensory function, no focal deficits noted. [] Psychologic: Affect normal, judgement normal, mood normal. [] Current Patient Data Vital Signs Vital Signs Date Time Temp Pulse Resp B/P (MAP) Pulse Ox O2 Delivery O2 Flow Rate FiO2 11/06/17 10:00 Room Air 11/06/17 08:27 98.5 89 22 98 Lab Results Laboratory Tests Test 11/06/17 08:48 11/06/17 09:13 11/06/17 09:26 White Blood Count 7.5 x10^3/uL (4.0-11.0) Red Blood Count 4.96 x10^6/uL (3.50-5.40) Hemoglobin 14.4 g/dL (12.0-15.5) Hematocrit 42.9 % (36.0-47.0) Mean Corpuscular Volume 86 fL (79-100) Mean Corpuscular Hemoglobin 29 pg (25-35) Mean Corpuscular Hemoglobin Concent 34 g/dL (31-37) Red Cell Distribution Width 12.9 % (11.5-14.5) Platelet Count 216 x10^3/uL (140-400) Neutrophils (%) (Auto) 71 % (31-73) Lymphocytes (%) (Auto) 23 % (24-48) L Monocytes (%) (Auto) 4 % (0-9) Eosinophils (%) (Auto) 1 % (0-3) Basophils (%) (Auto) 0 % (0-3) Neutrophils # (Auto) 5.3 x10^3uL (1.8-7.7) Lymphocytes # (Auto) 1.7 x10^3/uL (1.0-4.8) Monocytes # (Auto) 0.3 x10^3/uL (0.0-1.1) Eosinophils # (Auto) 0.1 x10^3/uL (0.0-0.7) Basophils # (Auto) 0.0 x10^3/uL (0.0-0.2) Sodium Level 140 mmol/L (136-145) Potassium Level 4.1 mmol/L (3.5-5.1) Chloride Level 107 mmol/L (98-107) Carbon Dioxide Level 29 mmol/L (21-32) Anion Gap 4 (6-14) L Blood Urea Nitrogen 11 mg/dL (7-20) Creatinine 0.6 mg/dL (0.6-1.0) Estimated GFR (Cockcroft-Gault) 111.9 Glucose Level 101 mg/dL (70-99) H Calcium Level 8.0 mg/dL (8.5-10.1) L Total Bilirubin 0.3 mg/dL (0.2-1.0) Direct Bilirubin 0.1 mg/dL (0.0-0.2) Aspartate Amino Transferase (AST) 19 U/L (15-37) Alanine Aminotransferase (ALT) 32 U/L (14-59) Alkaline Phosphatase 63 U/L (46-116) Troponin I Quantitative < 0.017 ng/mL (0-0.055) Total Protein 6.3 g/dL (6.4-8.2) L Albumin 3.2 g/dL (3.4-5.0) L Lipase 96 U/L (73-393) Serum Test, Qualitative Negative (NEG) Urine Collection Type Void Urine Color Yellow Urine Clarity Hazy Urine pH 7.0 Urine Specific [place] 1.020 Urine Protein Neg (NEG-TRACE) Urine Glucose (UA) Neg mg/dL (NEG) Urine Ketones (Stick) Neg mg/dL (NEG) Urine Blood Neg (NEG) Urine Nitrite Neg (NEG) Urine Bilirubin Neg (NEG) Urine Urobilinogen Dipstick 0.2 mg/dL (0.2 mg/dL) Urine Leukocyte Esterase Neg (NEG) Urine RBC Occ /HPF (0-2) Urine WBC 1-4 /HPF (0-4) Urine Squamous Epithelial Cells Mod /LPF Urine Bacteria Few /HPF (0-FEW) EKG EKG [] Radiology/Procedures Radiology/Procedures [] Course & Med Decision Making Course & Med Decision Making Pertinent Labs and Imaging studies reviewed. (See chart for details) [] Dragon Disclaimer Dragon Disclaimer This electronic medical record was generated, in whole or in part, using a voice recognition dictation system. Departure Departure: Impression: Primary Impression: Epigastric abdominal pain Disposition: HOME, SELF-CARE Condition: STABLE Referrals: MAIDA YAN DO, MPH (PCP) Patient Instructions: Abdominal Pain (Nonspecific) Additional Instructions: Thank you for allowing us to participate in your care today. Followup with your primary care physician in 3 days if your symptoms do not improve. Call your Primary Doctor tomorrow and inform them of your visit today. If you do not have a primary care provider you can ask for a list of our primary care providers. Return to the emergency department you have any new or concerning findings. This should be evaluated by the primary care physician and any necessary consulting services for continued management within a few days after discharge. Return to emergency room if you have any new or concerning symptoms including but not limited to fever, chills, nausea, vomiting, intractable pain, any new rashes, chest pain, shortness of air, uncontrolled bleeding, difficulty breathing, and/or vision loss. If at any time, you are having difficulty getting into your primary care doctor or a specialist, return to the emergency department. Scripts Ondansetron Hcl (ZOFRAN) 4 Mg Tablet 1 TAB PO PRN Q6HRS Y for NAUSEA, #6 TAB Prov: CARLOS ALBERTO MCINTOSH MD 11/06/17 Famotidine (PEPCID) 20 Mg Tablet 1 TAB PO PRN QHS Y for PAIN, #10 TAB 0 Refills Prov: CARLOS ALBERTO MCINTOSH MD 11/06/17 CARLOS ALBERTO MCINTOSH MD Nov 06, 2017 10:12
[2017-11-06] MEDS ORDERED: IOHEXOL 300 MG/ML 75 ML VIAL. IV ONE (10:30)
--- NOTE | 2017-11-06 11:04 | RAD ---
CT ABD PELV W/ IV CONTRST ONLY dated 11/06/2017 10:11 AM Indication: Pain, vomitingAbdomen pain with vomiting. Colon resection 2005. Prior imaging from Mar 2017 history of prior colon resection in 2005 Comparison: 03/20/2017 Technique: Contiguous axial imaging of the abdomen and pelvis performed after the intravenous administration of 75 cc Omnipaque 300 One or more of the following individualized dose reduction techniques were utilized for this examination: 1. Automated exposure control 2. Adjustment of the mA and/or kV according to patient size 3. Use of iterative reconstruction technique Findings: Limited images of lung bases are clear. Heart size within normal limits. No pleural or pericardial effusion. There is a vague low-density lesion in the right lobe liver on image 10 that measures about 8 mm in size, unchanged. No new liver lesion. Biliary tree normal in caliber. Gallbladder surgically absent. Spleen is normal in size. Pancreas, adrenal glands and kidneys are unremarkable. No hydronephrosis. Evidence of prior right colon resection with ileocolonic anastomosis, unchanged. The small bowel is normal in caliber. Previously described dilated fluid-filled loops of small bowel proximally are no longer visualized. No apparent wall thickening. No ascites or lymphadenopathy. Abdominal aorta normal in caliber. Images of pelvis show nondistended urinary bladder. Uterus and adnexa are unremarkable. Small amount of free pelvic fluid. No pelvic lymphadenopathy. Bone windows show no acute findings. Sclerotic changes of the bilateral SI joints consistent with prior episodes of sacroiliitis, unchanged. Mild multilevel spondylosis. IMPRESSION: 1. No acute abnormality of abdomen or pelvis. No evidence of bowel obstruction. 2. Evidence of prior right colon resection with stable appearance of the ileocolonic anastomosis. 3. Indeterminate low-density lesion of the right lobe liver, stable from prior study. 4. Small amount of free pelvic fluid, nonspecific. Electronically signed by: Nolan James MD (11/06/2017 11:00 AM) [id number]
[2017-11-06 11:52] VITALS: BP 104/62
== END 2017-11-06 11:45 | disposition home or self-care (01) ==
LOC: ER 08:11
DX: R10.13 Epigastric pain (principal); R11.10 Vomiting, unspecified; Z90.49 Acquired absence of other specified parts of digestive tract; Z88.8 Allergy status to other drugs, medicaments and biological substances
CPT/HCPCS: 36415; 74177; 80048; 80076; 81001; 83690; 84484; 84703; 85025; 96361; 96374; 96375; 96376; 99285; J2405; J3010; Q9967; S0028; J7030

== ENCOUNTER 2018-01-01 23:32 | Emergency (ER) | payer OTHER ==
[~2018-01-01] VITALS: Ht 152.4 cm; Wt 60.3 kg
[~2018-01-01 23:32] MED LIST changes: +FAMO-63 PO; +ONDA4TAB7 PO
--- NOTE | 2018-01-01 23:51 | ED.ADGEN ---
Past History Past Medical History: Other Past Surgical History: Appendectomy, Cholecystectomy, Other Alcohol Use: None Drug Use: None Adult General Chief Complaint Chief Complaint ".. I ate a hamburger ... and it made me sick...".." I am just so nauseated.. " [facility] HPI Patient is a 37 year old female who presents with above hx and complaints sever nausea and episodic vomiting. Generalize abd. pain after eating a hamburger. ate the same 1/2 hamburger with out any ill effects. Pt. has hx of multiple abd. surgeries, cholecystectomy, appendectomy, partial resection of large and small bowel. Patient does have history of previous small bowel obstruction, gastritis and bowel adhesions. .Pt. has had prior episode of Small bowel ileus tx. ed with NG and NPO status. Patient denies any travel or specific ill contacts. Patient has some localization of pain in right lower quadrant on palpation. And rebound. No psoas or obturator sign. The abdomen is distended. Pt. rates pain at time as 8-9/10, currently 4-5/10. Nothing make the pain better, movement makes it worse. Pt. states she has had a couple small stools. Patient normally follows with [facility]. Review of Systems Review of Systems Constitutional: Denies fever or chills [] Eyes: Denies change in visual acuity, redness, or eye pain [] HENT: Denies nasal congestion or sore throat [] Respiratory: Denies cough or shortness of breath [] Cardiovascular: No additional information not addressed in HPI [] GI: Complaints of abdominal pain, nausea, vomiting,. Denies bloody stools or diarrhea [] : Denies dysuria or hematuria [] Musculoskeletal: Denies back pain or joint pain [] Integument: Denies rash or skin lesions [] Neurologic: Denies headache, focal weakness or sensory changes [] Endocrine: Denies polyuria or polydipsia [] All other systems were reviewed and found to be within normal limits, except as documented in this note. Family History Family History Noncontributory Current Medications Current Medications Current Medications Medications (Trade) Dose Ordered Sig/Elin Start Time Stop Time Status Last Admin Dose Admin Benzocaine (Hurricaine One) 1 spray 1X ONCE 01/02/18 04:15 01/02/18 04:16 DC 01/02/18 04:51 1 SPRAY Famotidine (Pepcid) 20 mg 1X ONCE 01/02/18 00:15 01/02/18 00:33 DC 01/02/18 00:19 20 MG Info (Do NOT chart on this entry -- for MONITORING) 1 each PRN DAILY PRN 01/02/18 01:45 01/04/18 01:44 Iohexol (Omnipaque 240 Mg/ml) 50 ml 1X ONCE 01/02/18 01:45 01/02/18 01:46 DC 01/02/18 02:56 50 ML Iohexol (Omnipaque 300 Mg/ml) 75 ml 1X ONCE 01/02/18 01:45 01/02/18 01:46 DC 01/02/18 02:56 75 ML Lactated Ringer's 1,000 ml @ 1,000 mls/hr Q1H 01/02/18 01:00 01/02/18 01:59 DC 01/02/18 01:28 1,000 MLS/HR Lidocaine HCl (Uro-Jet) 10 taya STK-MED ONCE 01/02/18 04:23 01/02/18 04:24 DC Morphine Sulfate (Morphine 10mg Syringe) 10 mg 1X ONCE 01/02/18 01:00 01/02/18 01:42 DC 01/02/18 01:29 10 MG Ondansetron HCl (Zofran Odt) 8 mg 1X ONCE 01/02/18 01:00 01/02/18 01:42 DC 01/02/18 01:29 8 MG Oxycodone/ Acetaminophen (Percocet 5/325) 2 tab 1X ONCE 01/02/18 00:15 01/02/18 00:33 DC 01/02/18 00:19 2 TAB See nursing for home meds Allergies Allergies Allergies Coded Allergies Type Severity Reaction Last Updated Verified metoclopramide Allergy Severe Shortness of Air 01/02/18 Yes Physical Exam Physical Exam Constitutional: In moderately acute distress, non-toxic appearance. [] HENT: Normocephalic, atraumatic, bilateral external ears normal, oropharynx moist, no oral exudates, nose normal. [] Eyes: PERRLA, EOMI, conjunctiva normal, no discharge. [] Neck: Normal range of motion, no tenderness, supple, no stridor. [] Cardiovascular:Heart rate regular rhythm, no murmur [] Lungs & Thorax: Bilateral breath sounds equal at apexes on auscultation [] Abdomen: Bowel sounds hyperactive,, soft, generalized tenderness, some Rt. lower quadrant tenderness, no masses, no pulsatile masses. [ Upper abd. very distended. ] Multiple abd. surgery scars. Decline rectal / pelvic at this time. Denies vaginal discharge or Dysuria. Skin: Warm, dry, no erythema, no rash. [] Back: No tenderness, no CVA tenderness. [] Extremities: No tenderness, no cyanosis, no clubbing, ROM intact, no edema. [] Neurologic: Alert and oriented X 3, normal motor function, normal sensory function, no focal deficits noted. [] Psychologic: Affect anxious, judgement normal, mood normal. [] Current Patient Data Vital Signs Vital Signs Date Time Temp Pulse Resp B/P (MAP) Pulse Ox O2 Delivery O2 Flow Rate FiO2 01/02/18 06:15 98.2 71 17 114/73 (87) 96 Room Air Lab Results Laboratory Tests Test 01/02/18 00:10 01/02/18 00:11 01/02/18 01:08 Urine Collection Type Unknown Urine Color Yellow Urine Clarity Clear Urine pH 6.0 Urine Specific White 1.025 Urine Protein 30 mg/dl (NEG-TRACE) Urine Glucose (UA) Neg mg/dL (NEG) Urine Ketones (Stick) Trace mg/dL (NEG) Urine Blood Neg (NEG) Urine Nitrite Neg (NEG) Urine Bilirubin Neg (NEG) Urine Urobilinogen Dipstick 0.2 mg/dL (0.2 mg/dL) Urine Leukocyte Esterase Neg (NEG) Urine RBC 0 /HPF (0-2) Urine WBC Occ /HPF (0-4) Urine Squamous Epithelial Cells Many /LPF Urine Bacteria Few /HPF (0-FEW) Urine Test Negative (NEG) White Blood Count 8.6 x10^3/uL (4.0-11.0) Red Blood Count 5.28 x10^6/uL (3.50-5.40) Hemoglobin 15.4 g/dL (12.0-15.5) Hematocrit 45.6 % (36.0-47.0) Mean Corpuscular Volume 86 fL (79-100) Mean Corpuscular Hemoglobin 29 pg (25-35) Mean Corpuscular Hemoglobin Concent 34 g/dL (31-37) Red Cell Distribution Width 12.8 % (11.5-14.5) Platelet Count 306 x10^3/uL (140-400) Neutrophils (%) (Auto) 78 % (31-73) H Lymphocytes (%) (Auto) 17 % (24-48) L Monocytes (%) (Auto) 3 % (0-9) Eosinophils (%) (Auto) 1 % (0-3) Basophils (%) (Auto) 0 % (0-3) Neutrophils # (Auto) 6.7 x10^3uL (1.8-7.7) Lymphocytes # (Auto) 1.5 x10^3/uL (1.0-4.8) Monocytes # (Auto) 0.3 x10^3/uL (0.0-1.1) Eosinophils # (Auto) 0.1 x10^3/uL (0.0-0.7) Basophils # (Auto) 0.0 x10^3/uL (0.0-0.2) Prothrombin Time 9.9 SEC (9.4-11.4) Prothrombin Time INR 1.0 (0.9-1.1) PTT 27 SEC (23-33) Sodium Level 139 mmol/L (136-145) Potassium Level 4.3 mmol/L (3.5-5.1) Chloride Level 100 mmol/L (98-107) Carbon Dioxide Level 30 mmol/L (21-32) Anion Gap 9 (6-14) Blood Urea Nitrogen 11 mg/dL (7-20) Creatinine 0.8 mg/dL (0.6-1.0) Estimated GFR (Cockcroft-Gault) 79.9 Glucose Level 119 mg/dL (70-99) H Calcium Level 9.4 mg/dL (8.5-10.1) Total Bilirubin 0.4 mg/dL (0.2-1.0) Direct Bilirubin 0.1 mg/dL (0.0-0.2) Aspartate Amino Transferase (AST) 33 U/L (15-37) Alanine Aminotransferase (ALT) 49 U/L (14-59) Alkaline Phosphatase 119 U/L (46-116) H Total Protein 8.4 g/dL (6.4-8.2) H Albumin 4.0 g/dL (3.4-5.0) Amylase Level 36 U/L (25-115) Lipase 103 U/L (73-393) EKG EKG My interpretation of EKG show[] Radiology/Procedures Radiology/Procedures My interpretation of abdomen film shows air-fluid levels consistent with ileus. There is no free air under diaphragm. Old surgery clips. CT of abdomen shows small bowel obstruction deep to umbilicus. My interpretation of abd. film post NG- shows adequate placement below diaphragm. Course & Med Decision Making Course & Med Decision Making Pertinent Labs and Imaging studies reviewed. (See chart for details) Discussed presentation, testing and tx. plan with Dr. Moulton- Advised to have her admitted to Hospitalist at [facility], he would consult for the Small Bowel Obstruction. Discussed presentation, testing and tx. plan with Hospitalist. Dr. Dumont [] Final Impression Final Impression 1. Abdomen Pain 2. Gastritis 3. Nausea and vomiting 4. Ileus-Small bowel obstruction 5. Elevated Alk. Phosphate [] Dragon Disclaimer Dragon Disclaimer This electronic medical record was generated, in whole or in part, using a voice recognition dictation system. CRISTHIAN DE LOS SANTOS MD Jan 01, 2018 23:51
[2018-01-02] MEDS ORDERED: FAMOTIDINE 20 MG TABLET PO ONE (00:15)
[2018-01-02] MEDS ORDERED: ONDANSETRON ODT 4 MG TAB.RAPDIS PO ONE ×2 (00:15→01:00)
[2018-01-02] MEDS ORDERED: oxyCODONE/APAP 5/325 1 TAB TABLET PO ONE (00:15)
[2018-01-02 00:35] LABS: BACTERIA,URINE FEW /HPF (0-FEW); BILIRUBIN,URINE NEG (NEG); CLARITY,URINE CLEAR; COLOR,URINE YELLOW; GLUCOSE,URINE NEG (NEG); NITRITE,URINE NEG (NEG); RBC,URINE 0 /HPF (0-2); SQUAMOUS EPITHELIAL CELL,UR MANY /LPF; UROBILINOGEN,URINE 0.2 mg/dL (0.2 mg/dL); WBC,URINE OCC /HPF (0-4)
[2018-01-02 00:40] LABS: U PREG PATIENT NEGATIVE (NEG)
[2018-01-02] MEDS ORDERED: MORPHINE SULFATE 10 MG/ML SYRINGE. SQ ONE (01:00)
[2018-01-02] MEDS ORDERED: IV RINGERS SOLUTION,LACTATED 1,000 ML IV SCH (01:00)
[2018-01-02 01:29] LABS: BASO % 0 % (0-3); EOS # 0.1 x10^3/uL (0.0-0.7); EOS % 1 % (0-3); HEMATOCRIT 45.6 % (36.0-47.0); HEMOGLOBIN 15.4 g/dL (12.0-15.5); LYMPH # 1.5 x10^3/uL (1.0-4.8); LYMPH % 17 % (24-48); MEAN CORPUSCULAR HEMOGLOBIN 29 pg (25-35); MEAN CORPUSCULAR HGB CONC 34 g/dL (31-37); MEAN CORPUSCULAR VOLUME 86 fL (79-100); MONO # 0.3 x10^3/uL (0.0-1.1); MONO % 3 % (0-9); NEUT # 6.7 x10^3uL (1.8-7.7); NEUT % 78 % (31-73); PLATELET COUNT 306 x10^3/uL (140-400); RED BLOOD COUNT 5.28 x10^6/uL (3.50-5.40); RED CELL DISTRIBUTION WIDTH 12.8 % (11.5-14.5); WHITE BLOOD COUNT 8.6 x10^3/uL (4.0-11.0)
[2018-01-02] MEDS ORDERED: IOHEXOL 300 MG/ML 75 ML VIAL. IV ONE (01:45)
[2018-01-02] MEDS ORDERED: IOHEXOL 240 MG/ML 50ML VIAL. PO ONE (01:45)
[2018-01-02] MEDS ORDERED: CONTRAST GIVEN MC PRN (01:45)
[2018-01-02 01:46] LABS: CALCIUM 9.4 mg/dL (8.5-10.1); CREATININE 0.8 mg/dL (0.6-1.0); DIRECT BILIRUBIN 0.1 mg/dL (0.0-0.2); GFR 79.9; POTASSIUM 4.3 mmol/L (3.5-5.1); TOTAL BILIRUBIN 0.4 mg/dL (0.2-1.0); TOTAL PROTEIN 8.4 g/dL (6.4-8.2)
--- NOTE | 2018-01-02 01:57 | RAD ---
EXAM: Two view abdomen with one view chest HISTORY: Abdominal pain, prior small bowel obstruction. COMPARISON: None. FINDINGS: A frontal view of the chest and supine/upright views of the abdomen are obtained. There are no confluent infiltrates. There is no pneumothorax or pleural effusion. The heart is not enlarged. There is no pneumoperitoneum. One small air-fluid level in the left upper quadrant may be normal. There are no clearly distended small bowel loops. There is gas distally. Cholecystectomy clips and anastomotic suture line are noted. IMPRESSION: 1. No confluent infiltrates. 2. No clear evidence of obstruction. Electronically signed by: Mindy Zimmerman MD (01/02/2018 1:53 AM) [facility]
[2018-01-02] MEDS ORDERED: BENZOCAINE ONE 20% MUCOSAL SPRAY. MM (04:15)
[2018-01-02] MEDS ORDERED: LIDOCAINE 2% JELLY 10ML IN APPLICATOR. ONE (04:23)
--- NOTE | 2018-01-02 04:38 | RAD ---
EXAM: CT ABDOMEN/PELVIS WITH CONTRAST. HISTORY: Abdominal pain. Nausea/vomiting. TECHNIQUE: Computed tomography of the abdomen and pelvis was performed after the intravenous administration of 75 mL Omnipaque 300. COMPARISON: November 06, 2017. FINDINGS: Lung windows through the visualized portions of the bases reveal mild atelectasis. Bone windows reveal no suspicious lesions. There is a small hiatal hernia. Contrast refluxes into the distal esophagus. There are moderately distended small bowel loops within the left lower quadrant. There is a transition point just deep to the umbilicus as seen on coronal image 12, axial image 52. The small bowel and colon are decompressed more distally. Changes of right partial colectomy and ileocolonic anastomosis are noted. The uterus and ovaries are unremarkable by CT. There are no pathologically enlarged lymph nodes. The gallbladder is surgically absent. A cyst or hemangioma in the right hepatic lobe measures 7 mm and is stable. The spleen, pancreas, adrenal glands and kidneys are unremarkable. IMPRESSION: 1. Small bowel obstruction with transition point just deep to the umbilicus. 2. Small hiatal hernia. *One or more of the following individualized dose reduction techniques were utilized for this examination: 1. Automated exposure control. 2. Adjustment of the mA and/or kV according to patient size. 3. Use of iterative reconstruction technique. Electronically signed by: Mindy Zimmerman MD (01/02/2018 4:34 AM) [facility]
--- NOTE | 2018-01-02 05:16 | EKG ---
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
[2018-01-02] MEDS ORDERED: SERT100T PO (06:06)
--- NOTE | 2018-01-02 06:39 | RAD ---
EXAM: PORTABLE CHEST 1V. HISTORY: Small bowel obstruction, NG tube placement. COMPARISON: January 02, 2018. FINDINGS: A frontal view of the lower chest and upper abdomen is obtained. A nasogastric tube has its tip within the distal stomach. There is contrast within the stomach and renal collecting systems. The dilated small bowel loops noted on prior CT are not well appreciated by radiographs. Visualized lungs appear clear. Suture lines and surgical clips are noted in the right abdomen. IMPRESSION: 1. Nasogastric tube tip in the distal stomach. Electronically signed by: Mindy Zimmerman MD (01/02/2018 6:35 AM) [facility]
[2018-01-02 07:51] VITALS: BP 99/66
== END 2018-01-02 07:59 | disposition short-term general hospital (02) ==
LOC: ER 23:32
DX: K29.70 Gastritis, unspecified, without bleeding (principal); K56.7 Ileus, unspecified; R74.8 Abnormal levels of other serum enzymes; Z90.49 Acquired absence of other specified parts of digestive tract; Z98.890 Other specified postprocedural states; Z88.8 Allergy status to other drugs, medicaments and biological substances
CPT/HCPCS: 36415; 43752; 71045; 74022; 74177; 80048; 80076; 81001; 81025; 82150; 83690; 85025; 85610; 85730; 93005; 96360; 96361; 96372; 99285; J2270; J7120; Q0162; Q9966; Q9967

== ENCOUNTER 2018-04-14 06:09 | Emergency (ER) | payer OTHER ==
[~2018-04-14] VITALS: Ht 152.4 cm; Wt 59.0 kg
[~2018-04-14 06:09] MED LIST changes: +SERT100T PO
[2018-04-14 06:51] LABS: BASO % 0 % (0-3); EOS # 0.1 x10^3/uL (0.0-0.7); EOS % 1 % (0-3); HEMATOCRIT 43.8 % (36.0-47.0); HEMOGLOBIN 14.7 g/dL (12.0-15.5); LYMPH # 1.7 x10^3/uL (1.0-4.8); LYMPH % 18 % (24-48); MEAN CORPUSCULAR HEMOGLOBIN 29 pg (25-35); MEAN CORPUSCULAR HGB CONC 34 g/dL (31-37); MEAN CORPUSCULAR VOLUME 86 fL (79-100); MONO # 0.3 x10^3/uL (0.0-1.1); MONO % 3 % (0-9); NEUT # 7.6 x10^3uL (1.8-7.7); NEUT % 78 % (31-73); PLATELET COUNT 250 x10^3/uL (140-400); RED BLOOD COUNT 5.07 x10^6/uL (3.50-5.40); WHITE BLOOD COUNT 9.7 x10^3/uL (4.0-11.0)
[2018-04-14] MEDS ORDERED: IV NORMAL SALINE 1,000ML 1,000 ML IV ONE (07:00)
[2018-04-14 07:09] LABS: ALBUMIN/GLOBULIN RATIO 1.2 (1.0-1.7); CALCIUM 9.6 mg/dL (8.5-10.1); CREATININE 0.6 mg/dL (0.6-1.0); GFR 111.3; POTASSIUM 4.2 mmol/L (3.5-5.1); TOTAL BILIRUBIN 0.5 mg/dL (0.2-1.0); TOTAL PROTEIN 7.3 g/dL (6.4-8.2)
--- NOTE | 2018-04-14 07:12 | PHYS DOC ---
Past History Past Medical History: Depression, Other Past Surgical History: Appendectomy, Cholecystectomy, Alcohol Use: None Drug Use: None Adult General Chief Complaint Chief Complaint: ABDOMINAL PAIN HPI HPI 37-year-old female presents with epigastric abdominal pain that started last night. The patient had a normal meal with food that she regularly eats. The pain started sometime after. The patient has already had her gallbladder removed. The pain is a intermittent cramping sensation that comes on in intensity and is an 8 out of 10 the last 4 several minutes and then a wall subside to a lower level. This cycle repeated over and over all night. The patient states that she did not get any sleep and was awake most of the night due to the pain. She took a Zantac thinking it might be reflux but this did not help. Early this morning, she began to have vomiting. She has vomited at least twice. Patient has a history of bowel obstruction and bowel resection. She's had multiple abdominal surgeries in the past. She had a bowel movement last night. She has had flatulence since the pain started. She denies fever or chills. She denies dysuria or urinary frequency. Patient denies history of pancreatitis. Review of Systems Review of Systems Constitutional: Denies fever or chills [] Eyes: Denies change in visual acuity, redness, or eye pain [] HENT: Denies nasal congestion or sore throat [] Respiratory: Denies cough or shortness of breath [] Cardiovascular: No additional information not addressed in HPI [] GI: Abdominal pain, nausea, vomiting. No bloody stools or diarrhea [] : Denies dysuria or hematuria [] Musculoskeletal: Denies back pain or joint pain [] Integument: Denies rash or skin lesions [] Neurologic: Denies headache, focal weakness or sensory changes [] Endocrine: Denies polyuria or polydipsia [] All other systems were reviewed and found to be within normal limits, except as documented in this note. Current Medications Current Medications Current Medications Medications (Trade) Dose Ordered Sig/Elin Start Time Stop Time Status Last Admin Dose Admin Hydromorphone HCl (Dilaudid) 1 mg 1X ONCE 04/14/18 07:15 04/14/18 07:16 Ondansetron HCl (Zofran) 4 mg 1X ONCE 04/14/18 07:15 04/14/18 07:16 Sodium Chloride 1,000 ml @ 1,000 mls/hr 1X ONCE 04/14/18 07:00 04/14/18 07:59 Allergies Allergies Allergies Coded Allergies Type Severity Reaction Last Updated Verified metoclopramide Allergy Severe Shortness of Air 01/02/18 Yes Physical Exam Physical Exam Constitutional: Well developed, well nourished, no acute distress, non-toxic appearance. [] HENT: Normocephalic, atraumatic, bilateral external ears normal, oropharynx moist, no oral exudates, nose normal. [] Eyes: PERRLA, EOMI, conjunctiva normal, no discharge. [] Neck: Normal range of motion, no tenderness, supple, no stridor. [] Cardiovascular:Heart rate regular rhythm, no murmur [] Lungs & Thorax: Bilateral breath sounds clear to auscultation [] Abdomen: Bowel sounds normal, soft. Moderate epigastric tenderness. [] Skin: Warm, dry, no erythema, no rash. [] Back: No tenderness, no CVA tenderness. [] Extremities: No tenderness, no cyanosis, no clubbing, ROM intact, no edema. [] Neurologic: Alert and oriented X 3, normal motor function, normal sensory function, no focal deficits noted. [] Psychologic: Affect normal, judgement normal, mood normal. [] Current Patient Data Vital Signs Vital Signs Date Time Temp Pulse Resp B/P (MAP) Pulse Ox O2 Delivery O2 Flow Rate FiO2 04/14/18 06:42 97.7 93 18 99 Room Air Lab Results Laboratory Tests Test 04/14/18 05:56 04/14/18 06:30 POC Urine HCG, Qualitative hcg positive (Negative) White Blood Count 9.7 x10^3/uL (4.0-11.0) Red Blood Count 5.07 x10^6/uL (3.50-5.40) Hemoglobin 14.7 g/dL (12.0-15.5) Hematocrit 43.8 % (36.0-47.0) Mean Corpuscular Volume 86 fL (79-100) Mean Corpuscular Hemoglobin 29 pg (25-35) Mean Corpuscular Hemoglobin Concent 34 g/dL (31-37) Red Cell Distribution Width 13.0 % (11.5-14.5) Platelet Count 250 x10^3/uL (140-400) Neutrophils (%) (Auto) 78 % (31-73) H Lymphocytes (%) (Auto) 18 % (24-48) L Monocytes (%) (Auto) 3 % (0-9) Eosinophils (%) (Auto) 1 % (0-3) Basophils (%) (Auto) 0 % (0-3) Neutrophils # (Auto) 7.6 x10^3uL (1.8-7.7) Lymphocytes # (Auto) 1.7 x10^3/uL (1.0-4.8) Monocytes # (Auto) 0.3 x10^3/uL (0.0-1.1) Eosinophils # (Auto) 0.1 x10^3/uL (0.0-0.7) Basophils # (Auto) 0.0 x10^3/uL (0.0-0.2) EKG EKG [] Radiology/Procedures Radiology/Procedures [] Impressions: Examination: Acute abdomen series HISTORY: History of abdominal pain COMPARISON: 01/02/2018 FINDINGS: The cardiomediastinal silhouette grossly appears unremarkable. There is no acute infiltrate or visualized pneumothorax. Cholecystectomy clips identified. No evidence of free air noted under the hemidiaphragm. Paucity of gas in the abdomen limits evaluation of the small bowel. Large amount of stool identified in the rectum. Surgical sutures identified in the right mid abdomen. IMPRESSION: 1. Paucity of gas in the abdomen limits evaluation of the small bowel. Large amount of stool identified in the colon could be constipation or fecal impaction. Electronically signed by: David Doty MD (04/14/2018 8:37 AM) [facility] DICTATED AND SIGNED BY: DAVID DOTY MD DATE: 04/14/18 0835 CC: JUAN J HUNTER DO; PCP,UNKNOWN ~Examination: Obstetric ultrasound first trimester History: History of spotting, abdominal pain COMPARISON: None available FINDINGS: The uterus measures 8.5 x 5.3 x 5.8 cm. The right ovary measures 2.8 x 2.1 x 3.3 cm. There is 1.8 cm cystic structure identified in the right ovary.The left ovary measures 2.9 x 1.8 x 2.3 cm. Intrauterine gestational sac is identified. The gestational sac measures 0.95 cm corresponding to 5 weeks and 5 days pole is not identified. Expected date of delivery by this ultrasound is 12/10/2018. IMPRESSION: 1. Intrauterine gestational sac is identified without evidence of pole probably early . Close interval follow-up ultrasound examination and serial quantitative beta-hCG levels is recommended. 2. 1.8 cm cystic structure identified in the right ovary likely a corpus luteal cyst. Electronically signed by: David Doty MD (04/14/2018 10:47 AM) [facility] DICTATED AND SIGNED BY: DAVID DOTY MD DATE: 04/14/18 1040 CC: JUAN J HUNTER DO; PCP,UNKNOWN Course & Med Decision Making Course & Med Decision Making Pertinent Labs and Imaging studies reviewed. (See chart for details) The patient denied at triage. A urine was ordered for completeness, but we proceeded with imaging assuming it would be negative. After her acute abdominal series was completed, her cannot be positive. Given the patient's history of bowel obstruction, I likely would have proceeded with the acute abdominal series even with a positive as a bowel obstruction could be life-threatening and the acute series is the least radiation. A serum quantitative has been ordered for confirmation. The serum test confirmed her . sounds ordered. Ultrasound shows an intrauterine gestational sac. No pole is identified. This is likely early . Her acute abdominal series was unremarkable other than moderate to significant stool burden. Some of her discomfort could be due to constipation. I will advise that she increase her fluid intake and intermittently use milk of magnesia or lactulose for refractory constipation. She is further directed to follow with OB and begin to take vitamins. [] Dragon Disclaimer Dragon Disclaimer This electronic medical record was generated, in whole or in part, using a voice recognition dictation system. Departure Departure: Referrals: PCP,UNKNOWN (PCP) JUAN J HUNTER DO Apr 14, 2018 07:12
[2018-04-14] MEDS ORDERED: HYDROmorphone PF 1 MG/ML DISP.SYRIN IV ONE (07:15)
[2018-04-14] MEDS ORDERED: ONDANSETRON PF 4 MG/2 ML VIAL. IV ONE (07:15)
--- NOTE | 2018-04-14 08:41 | RAD ---
Examination: Acute abdomen series HISTORY: History of abdominal pain COMPARISON: 01/02/2018 FINDINGS: The cardiomediastinal silhouette grossly appears unremarkable. There is no acute infiltrate or visualized pneumothorax. Cholecystectomy clips identified. No evidence of free air noted under the hemidiaphragm. Paucity of gas in the abdomen limits evaluation of the small bowel. Large amount of stool identified in the rectum. Surgical sutures identified in the right mid abdomen. IMPRESSION: 1. Paucity of gas in the abdomen limits evaluation of the small bowel. Large amount of stool identified in the colon could be constipation or fecal impaction. Electronically signed by: David Doty MD (04/14/2018 8:37 AM) [facility]
--- NOTE | 2018-04-14 10:51 | RAD ---
Examination: Obstetric ultrasound first trimester History: History of spotting, abdominal pain COMPARISON: None available FINDINGS: The uterus measures 8.5 x 5.3 x 5.8 cm. The right ovary measures 2.8 x 2.1 x 3.3 cm. There is 1.8 cm cystic structure identified in the right ovary.The left ovary measures 2.9 x 1.8 x 2.3 cm. Intrauterine gestational sac is identified. The gestational sac measures 0.95 cm corresponding to 5 weeks and 5 days pole is not identified. Expected date of delivery by this ultrasound is 12/10/2018. IMPRESSION: 1. Intrauterine gestational sac is identified without evidence of pole probably early . Close interval follow-up ultrasound examination and serial quantitative beta-hCG levels is recommended. 2. 1.8 cm cystic structure identified in the right ovary likely a corpus luteal cyst. Electronically signed by: David Doty MD (04/14/2018 10:47 AM) [facility]
[2018-04-14 11:19] VITALS: BP 121/61
== END 2018-04-14 11:20 | disposition home or self-care (01) ==
LOC: ER 06:09
DX: R10.13 Epigastric pain (principal); R11.2 Nausea with vomiting, unspecified; Z33.1 Pregnant state, incidental; Z90.89 Acquired absence of other organs; Z90.49 Acquired absence of other specified parts of digestive tract; Z98.890 Other specified postprocedural states; Z88.8 Allergy status to other drugs, medicaments and biological substances
CPT/HCPCS: 36415; 74022; 76801; 80053; 81025; 83690; 84702; 85025; 96361; 96374; 96375; 99285; J1170; J2405; J7030

== ENCOUNTER 2018-04-17 17:16 | Emergency (ER) | payer OTHER ==
[~2018-04-17] VITALS: Ht 152.4 cm; Wt 59.0 kg
[2018-04-17] MEDS ORDERED: ONDANSETRON PF 4 MG/2 ML VIAL. IV ONE ×2 (17:30→19:30)
[2018-04-17] MEDS ORDERED: IV NORMAL SALINE 1,000ML 1,000 ML IV ONE ×2 (17:30→19:00)
[2018-04-17 17:45] LABS: BASO % 1 % (0-3); EOS # 0.1 x10^3/uL (0.0-0.7); EOS % 1 % (0-3); HEMATOCRIT 44.1 % (36.0-47.0); HEMOGLOBIN 15.1 g/dL (12.0-15.5); LYMPH # 2.5 x10^3/uL (1.0-4.8); LYMPH % 29 % (24-48); MEAN CORPUSCULAR HEMOGLOBIN 29 pg (25-35); MEAN CORPUSCULAR HGB CONC 34 g/dL (31-37); MEAN CORPUSCULAR VOLUME 86 fL (79-100); MONO # 0.4 x10^3/uL (0.0-1.1); MONO % 5 % (0-9); NEUT # 5.8 x10^3uL (1.8-7.7); NEUT % 65 % (31-73); PLATELET COUNT 295 x10^3/uL (140-400); RED BLOOD COUNT 5.16 x10^6/uL (3.50-5.40); WHITE BLOOD COUNT 8.8 x10^3/uL (4.0-11.0)
--- NOTE | 2018-04-17 17:56 | PHYS DOC ---
Past History Past Medical History: Depression, Other Past Surgical History: Appendectomy, Cholecystectomy, Alcohol Use: None Drug Use: None Adult General Chief Complaint Chief Complaint: NAUSEA/VOMITING/DIARRHEA HPI HPI 37-year-old female presents to emergency room with her unresponsive. The patient was immediately wheeled back to a room and the nurse was able to get her to answer questions after painful stimuli. Patient states that she has been vomiting since noon and is very tired. She was seen by myself in the emergency room a few days ago on newly diagnosed with . See note for further details. When I went in to see the patient, she was awake and alert. She was able to answer all my questions. She did not seem mentally altered in any way. She repeated that she has been vomiting several times a day and that she's never had this kind of vomiting with previous pregnancies. She has epigastric abdominal pain with the vomiting, but it is not tender. She denies fever or chills. She has not been able to keep very much but has been able to keep down some fluids. She denies any vaginal bleeding or abdominal cramping. Review of Systems Review of Systems Constitutional: Denies fever or chills [] Eyes: Denies change in visual acuity, redness, or eye pain [] HENT: Denies nasal congestion or sore throat [] Respiratory: Denies cough or shortness of breath [] Cardiovascular: No additional information not addressed in HPI [] GI: Epigastric abdominal pain, vomiting.[] : Denies dysuria or hematuria [] Musculoskeletal: Denies back pain or joint pain [] Integument: Denies rash or skin lesions [] Neurologic: Denies headache, focal weakness or sensory changes [] Endocrine: Denies polyuria or polydipsia [] All other systems were reviewed and found to be within normal limits, except as documented in this note. Current Medications Current Medications Current Medications Medications (Trade) Dose Ordered Sig/Elin Start Time Stop Time Status Last Admin Dose Admin Ondansetron HCl (Zofran) 4 mg 1X ONCE 04/17/18 17:30 04/17/18 17:32 DC 04/17/18 17:31 4 MG Sodium Chloride 1,000 ml @ 1,000 mls/hr 1X ONCE 04/17/18 17:30 04/17/18 18:29 04/17/18 17:31 1,000 MLS/HR Allergies Allergies Allergies Coded Allergies Type Severity Reaction Last Updated Verified metoclopramide Allergy Severe Shortness of Air 01/02/18 Yes Physical Exam Physical Exam Constitutional: Well developed, well nourished, no acute distress, non-toxic appearance. [] HENT: Normocephalic, atraumatic, bilateral external ears normal, oropharynx moist, no oral exudates, nose normal. [] Eyes: PERRLA, EOMI, conjunctiva normal, no discharge. [] Neck: Normal range of motion, no tenderness, supple, no stridor. [] Cardiovascular:Heart rate regular rhythm, no murmur [] Lungs & Thorax: Bilateral breath sounds clear to auscultation [] Abdomen: Bowel sounds normal, soft, no tenderness, no masses, no pulsatile masses. [] Skin: Warm, dry, no erythema, no rash. [] Back: No tenderness, no CVA tenderness. [] Extremities: No tenderness, no cyanosis, no clubbing, ROM intact, no edema. [] Neurologic: Alert and oriented X 3, normal motor function, normal sensory function, no focal deficits noted. [] Psychologic: Affect normal, judgement normal, mood normal. [] PE by Dr. Carr: Constitutional: Well developed, well nourished, no acute distress, non-toxic appearance. [] HENT: Normocephalic, atraumatic, oropharynx moist Eyes: EOMI, conjunctiva normal, no discharge. [] Neck: Normal range of motion, no tenderness, supple, no stridor. [] Cardiovascular: Heart rate regular rhythm, no murmur [] Lungs & Thorax: Bilateral breath sounds clear to auscultation [] Abdomen: Soft, mild distention, no guarding or rebound, slight tenderness RUQ Skin: Warm, dry, no erythema, no rash. [] Back: No tenderness, no CVA tenderness. [] Neurologic: Alert and oriented X 3, no focal deficits noted. [] Psychologic: Affect normal, judgement normal, mood normal. [] Current Patient Data Vital Signs Vital Signs Date Time Temp Pulse Resp B/P (MAP) Pulse Ox O2 Delivery O2 Flow Rate FiO2 04/17/18 17:16 97.7 67 18 100 Room Air Lab Results Laboratory Tests Test 04/17/18 17:03 White Blood Count 8.8 x10^3/uL (4.0-11.0) Red Blood Count 5.16 x10^6/uL (3.50-5.40) Hemoglobin 15.1 g/dL (12.0-15.5) Hematocrit 44.1 % (36.0-47.0) Mean Corpuscular Volume 86 fL (79-100) Mean Corpuscular Hemoglobin 29 pg (25-35) Mean Corpuscular Hemoglobin Concent 34 g/dL (31-37) Red Cell Distribution Width 13.0 % (11.5-14.5) Platelet Count 295 x10^3/uL (140-400) Neutrophils (%) (Auto) 65 % (31-73) Lymphocytes (%) (Auto) 29 % (24-48) Monocytes (%) (Auto) 5 % (0-9) Eosinophils (%) (Auto) 1 % (0-3) Basophils (%) (Auto) 1 % (0-3) Neutrophils # (Auto) 5.8 x10^3uL (1.8-7.7) Lymphocytes # (Auto) 2.5 x10^3/uL (1.0-4.8) Monocytes # (Auto) 0.4 x10^3/uL (0.0-1.1) Eosinophils # (Auto) 0.1 x10^3/uL (0.0-0.7) Basophils # (Auto) 0.0 x10^3/uL (0.0-0.2) EKG EKG [] Radiology/Procedures Radiology/Procedures [] Course & Med Decision Making Course & Med Decision Making Pertinent Labs and Imaging studies reviewed. (See chart for details) The patient's labs are ordered but pending. I am signing out the patient to Dr. Carr at 1816 for management and final disposition. [] Sign out received from Dr. Vega at 1816 regarding patient with hx of recently diagnosed with reports of intractable nausea and vomiting after taking Miralax this evening. On previous visit patient was thought to be constipated. 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 Patient reports this does not feel similar to prior bowel obstructions. Reports she is passing gas and did have a bowel movement today. Denies fever/chills. Abdomen nonperitoneal. Labs reviewed. Symptomatic treatment provided. Patient with interval improvement of symptoms. Patient stable for discharge with outpatient follow- up with PCP. Discussed findings and plan with patient, who acknowledges understanding and agreement. Erik Disclaimer Erik Disclaimer This electronic medical record was generated, in whole or in part, using a voice recognition dictation system. Departure Departure: Impression: Primary Impression: Abdominal pain Additional Impressions: Nausea & vomiting Disposition: HOME, SELF-CARE Condition: IMPROVED Referrals: SELINA FOX DO (PCP) Patient Instructions: Abdominal Pain, [id number], Heartburn During , Nyti-sy-Lgea, Nausea and Vomiting, [id number] Scripts Famotidine (PEPCID) 20 Mg Tablet 1 TAB PO BID, #20 TAB 0 Refills Prov: LENARD CARR DO 04/17/18 Ondansetron (ONDANSETRON ODT) 4 Mg Tab.rapdis 1 TAB PO PRN Q6-8HRS for NAUSEA, #16 TAB Prov: LENARD CARR DO 04/17/18 Problem Qualifiers Primary Impression: Abdominal pain Abdominal location: right upper quadrant Qualified Codes: R10.11 - Right upper quadrant pain Additional Impressions: Nausea & vomiting Vomiting type: unspecified Vomiting Intractability: intractable Qualified Codes: R11.2 - Nausea with vomiting, unspecified Weeks of gestation: unspecified Qualified Codes: Z34.90 - Encounter for supervision of normal , unspecified, unspecified trimester JUAN J HUNTER DO Apr 17, 2018 17:56 LENARD CARR DO Apr 17, 2018 22:28
[2018-04-17 18:14] LABS: ALBUMIN/GLOBULIN RATIO 1.1 (1.0-1.7); CALCIUM 9.8 mg/dL (8.5-10.1); CREATININE 0.8 mg/dL (0.6-1.0); GFR 79.9; POTASSIUM 3.6 mmol/L (3.5-5.1); TOTAL BILIRUBIN 0.6 mg/dL (0.2-1.0); TOTAL PROTEIN 7.8 g/dL (6.4-8.2)
[2018-04-17 18:50] LABS: AMPHETAMINE/METHAMPHETAMINE NEG (NEG); BARBITURATES NEG (NEG); BENZODIAZEPINES NEG (NEG); CANNABINOIDS NEG (NEG); COCAINE NEG (NEG); METHADONE NEG (NEG); OPIATES NEG (NEG); PHENCYCLIDINE NEG (NEG)
[2018-04-17 18:55] LABS: BACTERIA,URINE MANY /HPF (0-FEW); BILIRUBIN,URINE NEG (NEG); CLARITY,URINE CLOUDY; COLOR,URINE YELLOW; GLUCOSE,URINE NEG (NEG); NITRITE,URINE NEG (NEG); RBC,URINE 0 /HPF (0-2); SQUAMOUS EPITHELIAL CELL,UR MANY /LPF; UROBILINOGEN,URINE 0.2 mg/dL (0.2 mg/dL)
[2018-04-17] MEDS ORDERED: FAMOTIDINE 20 MG/2 ML VIAL IVP ONE (19:00)
[2018-04-17] MEDS ORDERED: PROMETHAZINE 12.5 MG in IV NORMAL SALINE 50ML 50 ML IV ONE (19:00)
[2018-04-17] MEDS ORDERED: DICYCLOMINE 20 MG/2 ML AMPUL. IM ONE (20:15)
[2018-04-17] MEDS ORDERED: PROCHLORPERAZINE 10 MG/2 ML VIAL. IV ONE (21:00)
[2018-04-17] MEDS ORDERED: diphenhydrAMINE 50 MG/ML VIAL IVP ONE (21:00)
[2018-04-17] MEDS ORDERED: ONDA4TAB12 PO (22:28)
[2018-04-17] MEDS ORDERED: FAMO-63 PO (22:28)
[2018-04-17 22:30] VITALS: BP 110/68
== END 2018-04-17 22:41 | disposition home or self-care (01) ==
LOC: ER 17:16
DX: O26.899 Other specified pregnancy related conditions, unspecified trimester (principal); O21.9 Vomiting of pregnancy, unspecified; R10.13 Epigastric pain; Z90.49 Acquired absence of other specified parts of digestive tract; Z90.89 Acquired absence of other organs; Z88.8 Allergy status to other drugs, medicaments and biological substances
CPT/HCPCS: 36415; 80053; 80307; 81001; 83690; 84702; 85025; 87086; 96361; 96372; 96374; 96375; 96376; 99284; J0500; J0780; J1200; J2405; S0028; G0479; J7030

== ENCOUNTER 2018-04-18 08:54 | Emergency (ER) | payer OTHER ==
[~2018-04-18] VITALS: Ht 152.4 cm; Wt 59.0 kg
[~2018-04-18 08:54] MED LIST changes: +ONDA4TAB12 PO
--- NOTE | 2018-04-18 09:17 | PHYS DOC ---
Past History Past Medical History: Depression, Other Past Surgical History: Appendectomy, Cholecystectomy, Alcohol Use: None Drug Use: None Adult General Chief Complaint Chief Complaint: VOMITING IN HPI HPI 37-year-old female returns to the emergency room with continued nausea and vomiting. The patient was discharged about 12 hours ago from the same facility. This is her third visit in the last week. She denies hematemesis, diarrhea, constipation. She has not had any chest pain, shortness of breath, or cough. She denies dysuria, urinary frequency, fever or chills. She has some generalized abdominal pain from the vomiting. She is unable to keep down any liquids or solids. She states that even water comes right back up. She was discharged with Zofran and decision she takes a drink she vomits that back up also. Review of Systems Review of Systems Constitutional: Denies fever or chills [] Eyes: Denies change in visual acuity, redness, or eye pain [] HENT: Denies nasal congestion or sore throat [] Respiratory: Denies cough or shortness of breath [] Cardiovascular: No additional information not addressed in HPI [] GI: Abdominal pain, vomiting[] : Denies dysuria or hematuria [] Musculoskeletal: Denies back pain or joint pain [] Integument: Denies rash or skin lesions [] Neurologic: Denies headache, focal weakness or sensory changes [] Endocrine: Denies polyuria or polydipsia [] All other systems were reviewed and found to be within normal limits, except as documented in this note. Current Medications Current Medications Current Medications Medications (Trade) Dose Ordered Sig/[facility] Start Time Stop Time Status Last Admin Dose Admin Ondansetron HCl (Zofran) 4 mg 1X ONCE 04/18/18 09:30 04/18/18 09:31 Sodium Chloride 1,000 ml @ 1,000 mls/hr 1X ONCE 04/18/18 09:30 04/18/18 10:29 Allergies Allergies Allergies Coded Allergies Type Severity Reaction Last Updated Verified metoclopramide Allergy Severe Shortness of Air 01/02/18 Yes Physical Exam Physical Exam Constitutional: Well developed, well nourished, no acute distress, non-toxic appearance. [] HENT: Normocephalic, atraumatic, bilateral external ears normal, oropharynx moist, no oral exudates, nose normal. [] Eyes: PERRLA, EOMI, conjunctiva normal, no discharge. [] Neck: Normal range of motion, no tenderness, supple, no stridor. [] Cardiovascular:Heart rate regular rhythm, no murmur [] Lungs & Thorax: Bilateral breath sounds clear to auscultation [] Abdomen: Diffuse tenderness, mild[] Skin: Warm, dry, no erythema, no rash. [] Back: No tenderness, no CVA tenderness. [] Extremities: No tenderness, no cyanosis, no clubbing, ROM intact, no edema. [] Neurologic: Alert and oriented X 3, normal motor function, normal sensory function, no focal deficits noted. [] Psychologic: Affect normal, judgement normal, mood normal. [] EKG EKG [] Radiology/Procedures Radiology/Procedures [] Course & Med Decision Making Course & Med Decision Making Pertinent Labs and Imaging studies reviewed. (See chart for details) Given that this is the patient's third admission for nausea and vomiting in within the last week, I have offered to talk with NUTRITION THERAPIST and have the patient admitted to their service for further management. The patient is in agreement with this plan. I discussed the case with Dr. Perez and he has agreed to the patient's transfer and admission to his service. [] Dragon Disclaimer Dragon Disclaimer This electronic medical record was generated, in whole or in part, using a voice recognition dictation system. Departure Departure: Referrals: SELINA FOX DO (PCP) JUAN J HUNTER DO Apr 18, 2018 09:17
[2018-04-18 09:27] LABS: BASO % 0 % (0-3); EOS % 0 % (0-3); HEMATOCRIT 42.3 % (36.0-47.0); HEMOGLOBIN 14.4 g/dL (12.0-15.5); LYMPH % 10 % (24-48); MEAN CORPUSCULAR HEMOGLOBIN 30 pg (25-35); MEAN CORPUSCULAR HGB CONC 34 g/dL (31-37); MEAN CORPUSCULAR VOLUME 88 fL (79-100); MONO # 0.2 x10^3/uL (0.0-1.1); MONO % 2 % (0-9); NEUT # 9.3 x10^3uL (1.8-7.7); NEUT % 88 % (31-73); PLATELET COUNT 270 x10^3/uL (140-400); RED BLOOD COUNT 4.83 x10^6/uL (3.50-5.40); RED CELL DISTRIBUTION WIDTH 12.9 % (11.5-14.5); WHITE BLOOD COUNT 10.6 x10^3/uL (4.0-11.0)
[2018-04-18] MEDS ORDERED: IV NORMAL SALINE 1,000ML 1,000 ML IV ONE (09:30)
[2018-04-18] MEDS ORDERED: ONDANSETRON PF 4 MG/2 ML VIAL. IV ONE (09:30)
[2018-04-18 09:55] LABS: ALBUMIN 3.6 g/dL (3.4-5.0); CALCIUM 9.1 mg/dL (8.5-10.1); CREATININE 0.8 mg/dL (0.6-1.0); GFR 79.9; POTASSIUM 3.9 mmol/L (3.5-5.1); TOTAL BILIRUBIN 0.6 mg/dL (0.2-1.0); TOTAL PROTEIN 7.2 g/dL (6.4-8.2)
[2018-04-18 10:07] LABS: % BANDS 2 % (0-9); % LYMPHS 14 % (24-48); % MONOS 1 % (0-10); % SEGS 83 % (35-66)
[2018-04-18 10:08] LABS: PLT ESTIMATE ADEQUATE (ADEQUATE); POLYCHROMASIA SLIGHT; TOXIC GRANULATION PRESENT
[2018-04-18 10:14] LABS: TOXIC VACUOLATION PRESENT
[2018-04-18] MEDS ORDERED: ACETAMINOPHEN 325 MG TABLET PO ONE (10:15)
[2018-04-18 10:50] VITALS: BP 107/64
[2018-04-18] MEDS ORDERED: FAMOTIDINE 20 MG/2 ML VIAL IVP ONE (12:45)
== END 2018-04-18 15:42 | disposition short-term general hospital (02) ==
LOC: ER 08:54
DX: O21.9 Vomiting of pregnancy, unspecified (principal); R10.84 Generalized abdominal pain; Z3A.00 Weeks of gestation of pregnancy not specified; Z88.8 Allergy status to other drugs, medicaments and biological substances
CPT/HCPCS: 36415; 80053; 85007; 85025; 96361; 96374; 96375; 99285; J2405; S0028; J7030

== ENCOUNTER 2018-11-22 11:55 | Emergency (ER) | payer OTHER ==
[~2018-11-22] VITALS: Ht 152.4 cm; Wt 59.9 kg
[2018-11-22] MEDS: ONDANSETRON PF 4 MG/2 ML VIAL. IV ONE ×2 (12:21→14:51)
[2018-11-22] MEDS: IV NORMAL SALINE 1,000ML 1,000 ML IV ONE (12:21)
[2018-11-22 12:28] LABS: BASO % 1 % (0-3); EOS # 0.1 x10^3/uL (0.0-0.7); EOS % 1 % (0-3); HEMATOCRIT 47.3 % (36.0-47.0); HEMOGLOBIN 15.8 g/dL (12.0-15.5); LYMPH # 1.7 x10^3/uL (1.0-4.8); LYMPH % 23 % (24-48); MEAN CORPUSCULAR HEMOGLOBIN 29 pg (25-35); MEAN CORPUSCULAR HGB CONC 33 g/dL (31-37); MEAN CORPUSCULAR VOLUME 87 fL (79-100); MONO # 0.3 x10^3/uL (0.0-1.1); MONO % 4 % (0-9); NEUT # 5.3 x10^3uL (1.8-7.7); NEUT % 71 % (31-73); PLATELET COUNT 290 x10^3/uL (140-400); RED BLOOD COUNT 5.45 x10^6/uL (3.50-5.40); RED CELL DISTRIBUTION WIDTH 13.1 % (11.5-14.5); WHITE BLOOD COUNT 7.5 x10^3/uL (4.0-11.0)
[2018-11-22 12:41] LABS: ALBUMIN 4.4 g/dL (3.4-5.0); ALBUMIN/GLOBULIN RATIO 1.3 (1.0-1.7); CALCIUM 9.8 mg/dL (8.5-10.1); CREATININE 0.7 mg/dL (0.6-1.0); GFR 93.2; POTASSIUM 4.5 mmol/L (3.5-5.1); TOTAL BILIRUBIN 0.4 mg/dL (0.2-1.0); TOTAL PROTEIN 7.9 g/dL (6.4-8.2)
--- NOTE | 2018-11-22 12:41 | PHYS DOC ---
Past History Past Medical History: Anxiety, Depression, Other Past Surgical History: Appendectomy, Cholecystectomy, , Other Alcohol Use: None Drug Use: None Adult General Chief Complaint Chief Complaint: ABDOMINAL PAIN HPI HPI Patient is a 37-year-old female with previous abdominal surgeries who presents with a 12 hour history of severe right-sided abdominal pain and tenderness. She has associated nausea and vomiting. She denies any fever chills or sweats. She states she has had an appendectomy and a cholecystectomy in the past. She has not been able to keep any food down over the last 12 hours.[] Review of Systems Review of Systems Constitutional: Denies fever or chills [] Eyes: Denies change in visual acuity, redness, or eye pain [] HENT: Denies nasal congestion or sore throat [] Respiratory: Denies cough or shortness of breath [] Cardiovascular: No additional information not addressed in HPI [] GI: Per history of present illness[] : Denies dysuria or hematuria [] Musculoskeletal: Denies back pain or joint pain [] Integument: Denies rash or skin lesions [] Neurologic: Denies headache, focal weakness or sensory changes [] Endocrine: Denies polyuria or polydipsia [] All other systems were reviewed and found to be within normal limits, except as documented in this note. Current Medications Current Medications Current Medications Medications (Trade) Dose Ordered Sig/Elin Start Time Stop Time Status Last Admin Dose Admin Fentanyl Citrate (Fentanyl 2ml Vial) 50 mcg 1X ONCE 11/22/18 12:30 11/22/18 12:31 DC 11/22/18 12:21 50 MCG Iohexol (Omnipaque 300 Mg/ml) 75 ml 1X ONCE 11/22/18 12:45 11/22/18 12:46 Ondansetron HCl (Zofran) 4 mg 1X ONCE 11/22/18 12:30 11/22/18 12:31 DC 11/22/18 12:21 4 MG Sodium Chloride 1,000 ml @ 1,000 mls/hr 1X ONCE 11/22/18 12:15 11/22/18 13:14 11/22/18 12:21 1,000 MLS/HR Allergies Allergies Allergies Coded Allergies Type Severity Reaction Last Updated Verified metoclopramide Allergy Severe Shortness of Air 01/02/18 Yes Physical Exam Physical Exam Constitutional: Well developed, well nourished, moderate distress, non-toxic appearance. [] HENT: Normocephalic, atraumatic, bilateral external ears normal, oropharynx moist, no oral exudates, nose normal. [] Eyes: PERRLA, EOMI, conjunctiva normal, no discharge. [] Neck: Normal range of motion, no tenderness, supple, no stridor. [] Cardiovascular:Heart rate regular rhythm, no murmur [] Lungs & Thorax: Bilateral breath sounds clear to auscultation [] Abdomen: Bowel sounds normal, soft, diffusely tender to palp however it seems the right lower quadrant is more tender than the rest. [] Skin: Warm, dry, no erythema, no rash. [] Back: No tenderness, no CVA tenderness. [] Extremities: No tenderness, no cyanosis, no clubbing, ROM intact, no edema. [] Neurologic: Alert and oriented X 3, normal motor function, normal sensory function, no focal deficits noted. [] Psychologic: Extremely anxious tearful. [] Current Patient Data Vital Signs Vital Signs Date Time Temp Pulse Resp B/P (MAP) Pulse Ox O2 Delivery O2 Flow Rate FiO2 11/22/18 12:21 16 97 Room Air 11/22/18 12:07 98.0 85 Lab Results Laboratory Tests Test 11/22/18 12:16 White Blood Count 7.5 x10^3/uL (4.0-11.0) Red Blood Count 5.45 x10^6/uL (3.50-5.40) H Hemoglobin 15.8 g/dL (12.0-15.5) H Hematocrit 47.3 % (36.0-47.0) H Mean Corpuscular Volume 87 fL (79-100) Mean Corpuscular Hemoglobin 29 pg (25-35) Mean Corpuscular Hemoglobin Concent 33 g/dL (31-37) Red Cell Distribution Width 13.1 % (11.5-14.5) Platelet Count 290 x10^3/uL (140-400) Neutrophils (%) (Auto) 71 % (31-73) Lymphocytes (%) (Auto) 23 % (24-48) L Monocytes (%) (Auto) 4 % (0-9) Eosinophils (%) (Auto) 1 % (0-3) Basophils (%) (Auto) 1 % (0-3) Neutrophils # (Auto) 5.3 x10^3uL (1.8-7.7) Lymphocytes # (Auto) 1.7 x10^3/uL (1.0-4.8) Monocytes # (Auto) 0.3 x10^3/uL (0.0-1.1) Eosinophils # (Auto) 0.1 x10^3/uL (0.0-0.7) Basophils # (Auto) 0.0 x10^3/uL (0.0-0.2) EKG EKG [] Radiology/Procedures Radiology/Procedures [] Impressions: REASON: RLQ ABDOMINAL PAIN X 24 HOURS PROCEDURE: CT ABD PELV W/ IV CONTRST ONLY Examination: CT ABD PELV W/ IV CONTRST ONLY History: Right lower quadrant abdominal pain for 24 hours Comparison/Correlation: 01/02/2018 CT abdomen and pelvis with IV contrast Findings: Axial images of the abdomen and pelvis were obtained following IV contrast. Sagittal and coronal reformatted images provided. Visualized lung bases are clear. Cholecystectomy noted. Minimal intrahepatic biliary gas which is presumably postoperative is noted. Debris and fluid are noted within the distended stomach. Spleen is unremarkable. Adrenal glands are within normal limits. Pancreas is normal. Kidneys are normal. Very small to characterize right hepatic dome low-attenuation lesion is unchanged compared to previous exam. Few punctate and linear left hepatic dome densities are present but of indeterminate significance. These are new since the previous CT exam. These are best seen on axial images 10 through 14. Multiple distended small bowel loops are present with transition point in the lower abdomen anteriorly best seen on coronal image 22 and axial image 47. No enlarged abdominal or pelvic lymph nodes. Surgical clips at the right mid abdomen are present. Suture material about the cecum noted. No inflammatory change about the cecum. Moderate quantity of stool throughout the colon identified. Uterus is unremarkable. Right adnexal follicles are physiologic in appearance. No ascites or significant pelvic free fluid. No acute bony process. Impression: Small bowel obstruction with an abrupt transition point within the lower midabdomen anteriorly. This is the same site of obstruction noted on previous CT exam of 01/02/2018. Course & Med Decision Making Course & Med Decision Making ED course: Evaluation reveals a 37-year-old female with a history of a bowel o bstruction. She presents again today with abdominal discomfort and vomiting. CT scan revealed a small bowel obstruction at the same spot she had one before. G-tube was placed and the patient was prepared for transfer to [facility]. Dr. Dumont was accepting. Dragon Disclaimer Dragon Disclaimer This electronic medical record was generated, in whole or in part, using a voice recognition dictation system. Departure Departure: Impression: Primary Impression: Small bowel obstruction Disposition: 05 TRANSFER OTHER ([facility]) Condition: GUARDED Referrals: SELINA FOX DO (PCP) KRISTI CENTENO DO November 22, 2018 12:41
[2018-11-22] MEDS ORDERED: IOHEXOL 300 MG/ML 75 ML VIAL. IV ONE (12:45)
[2018-11-22 13:52] LABS: BILIRUBIN,URINE NEG (NEG); CLARITY,URINE CLEAR; COLOR,URINE YELLOW; GLUCOSE,URINE NEG (NEG); NITRITE,URINE NEG (NEG); UROBILINOGEN,URINE 0.2 mg/dL (0.2 mg/dL)
[2018-11-22 13:54] LABS: RBC,URINE 0 /HPF (0-2); WBC,URINE OCC /HPF (0-4)
[2018-11-22 13:55] LABS: BACTERIA,URINE FEW /HPF (0-FEW); SQUAMOUS EPITHELIAL CELL,UR FEW /LPF; U PREG PATIENT NEGATIVE (NEG)
--- NOTE | 2018-11-22 14:57 | RAD ---
Examination: CT ABD PELV W/ IV CONTRST ONLY History: Right lower quadrant abdominal pain for 24 hours Comparison/Correlation: 01/02/2018 CT abdomen and pelvis with IV contrast Findings: Axial images of the abdomen and pelvis were obtained following IV contrast. Sagittal and coronal reformatted images provided. Visualized lung bases are clear. Cholecystectomy noted. Minimal intrahepatic biliary gas which is presumably postoperative is noted. Debris and fluid are noted within the distended stomach. Spleen is unremarkable. Adrenal glands are within normal limits. Pancreas is normal. Kidneys are normal. Very small to characterize right hepatic dome low-attenuation lesion is unchanged compared to previous exam. Few punctate and linear left hepatic dome densities are present but of indeterminate significance. These are new since the previous CT exam. These are best seen on axial images 10 through 14. Multiple distended small bowel loops are present with transition point in the lower abdomen anteriorly best seen on coronal image 22 and axial image 47. No enlarged abdominal or pelvic lymph nodes. Surgical clips at the right mid abdomen are present. Suture material about the cecum noted. No inflammatory change about the cecum. Moderate quantity of stool throughout the colon identified. Uterus is unremarkable. Right adnexal follicles are physiologic in appearance. No ascites or significant pelvic free fluid. No acute bony process. Impression: Small bowel obstruction with an abrupt transition point within the lower midabdomen anteriorly. This is the same site of obstruction noted on previous CT exam of 01/02/2018. Subtle low-density foci involving the left hepatic dome are new in the interval and of indeterminate significance. Consider further evaluation MRI of the liver without and with contrast if able on a nonemergent basis. This may represent a region of biliary ductal ectasia. PQRS Compliance Statement: One or more of the following individualized dose reduction techniques were utilized for this examination: 1. Automated exposure control 2. Adjustment of the mA and/or kV according to patient size 3. Use of iterative reconstruction technique Electronically signed by: Eduin Hand MD (11/22/2018 2:55 PM) [id number]
[2018-11-22 15:38] VITALS: BP 115/82
== END 2018-11-22 16:00 | disposition short-term general hospital (02) ==
LOC: ER 11:55
DX: K56.609 Unspecified intestinal obstruction, unspecified as to partial versus complete obstruction (principal); R11.2 Nausea with vomiting, unspecified; Z90.89 Acquired absence of other organs; Z90.49 Acquired absence of other specified parts of digestive tract; Z98.890 Other specified postprocedural states; Z88.8 Allergy status to other drugs, medicaments and biological substances
CPT/HCPCS: 36415; 43762; 74177; 80053; 81001; 81025; 83690; 85025; 96361; 96374; 96375; 96376; 99285; J2405; J3010; J7030

== ENCOUNTER 2018-12-06 18:07 | Emergency (ER) | payer OTHER ==
[~2018-12-06] VITALS: Ht 152.4 cm; Wt 58.1 kg
[2018-12-06] MEDS ORDERED: ONDANSETRON PF 4 MG/2 ML VIAL. IV ONE ×2 (18:45→21:30)
[2018-12-06] MEDS ORDERED: IV NORMAL SALINE 1,000ML 1,000 ML IV ONE (18:45)
[2018-12-06] MEDS ORDERED: HYDROmorphone PF 1 MG/ML DISP.SYRIN IV ONE ×2 (18:45→21:15)
--- NOTE | 2018-12-06 18:54 | PHYS DOC ---
Past History Past Medical History: Other Past Surgical History: Appendectomy, Cholecystectomy, Colectomy Alcohol Use: None Drug Use: None Adult General Chief Complaint Chief Complaint: ABDOMINAL PAIN HPI HPI 37-year-old female presents with sudden onset abdominal pain. Patient ate a piece of lasagna and then shortly after had severe right lower quadrant abdominal pain. The pain is a cramping pain 8 out of 10. The patient was recently diagnosed with small bowel obstruction that resolved with decompression. No surgery was required. This was about 2 weeks ago. She has been taking [place] pain medication, but no stool softeners. She was passing gas earlier today and had a bowel movement today. Nothing since the pain started. She denies vomiting but has had nausea. Denies dysuria or urinary frequency. 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 Review of Systems Review of Systems Constitutional: Denies fever or chills [] Eyes: Denies change in visual acuity, redness, or eye pain [] HENT: Denies nasal congestion or sore throat [] Respiratory: Denies cough or shortness of breath [] Cardiovascular: No additional information not addressed in HPI [] GI: RLQ abdominal pain, nausea, Denies vomiting, bloody stools or diarrhea [] : Denies dysuria or hematuria [] Musculoskeletal: Denies back pain or joint pain [] Integument: Denies rash or skin lesions [] Neurologic: Denies headache, focal weakness or sensory changes [] Endocrine: Denies polyuria or polydipsia [] All other systems were reviewed and found to be within normal limits, except as documented in this note. Current Medications Current Medications Current Medications Medications (Trade) Dose Ordered Sig/Elin Start Time Stop Time Status Last Admin Dose Admin Hydromorphone HCl (Dilaudid) 1 mg 1X ONCE 12/06/18 18:45 12/06/18 18:47 DC 12/06/18 18:47 1 MG Iohexol (Omnipaque 240 Mg/ml) 30 ml 1X ONCE 12/06/18 19:00 12/06/18 19:01 Iohexol (Omnipaque 300 Mg/ml) 75 ml 1X ONCE 12/06/18 19:00 12/06/18 19:01 Ondansetron HCl (Zofran) 4 mg 1X ONCE 12/06/18 18:45 12/06/18 18:47 DC 12/06/18 18:47 4 MG Sodium Chloride 1,000 ml @ 1,000 mls/hr 1X ONCE 12/06/18 18:45 12/06/18 19:44 12/06/18 18:48 1,000 MLS/HR Allergies Allergies Allergies Coded Allergies Type Severity Reaction Last Updated Verified metoclopramide Allergy Severe Shortness of Air 01/02/18 Yes promethazine Allergy Unknown 12/06/18 Yes Physical Exam Physical Exam Constitutional: Well developed, well nourished, no acute distress, non-toxic appearance. [] HENT: Normocephalic, atraumatic, bilateral external ears normal, oropharynx moist, no oral exudates, nose normal. [] Eyes: PERRLA, EOMI, conjunctiva normal, no discharge. [] Neck: Normal range of motion, no tenderness, supple, no stridor. [] Cardiovascular:Heart rate regular rhythm, no murmur [] Lungs & Thorax: Bilateral breath sounds clear to auscultation [] Abdomen: Bowel sounds normal, soft, no tenderness, no masses, no pulsatile masses. [] Skin: Warm, dry, no erythema, no rash. [] Back: No tenderness, no CVA tenderness. [] Extremities: No tenderness, no cyanosis, no clubbing, ROM intact, no edema. [] Neurologic: Alert and oriented X 3, normal motor function, normal sensory function, no focal deficits noted. [] Psychologic: Affect normal, judgement normal, mood normal. [] Current Patient Data Vital Signs Vital Signs Date Time Temp Pulse Resp B/P (MAP) Pulse Ox O2 Delivery O2 Flow Rate FiO2 12/06/18 18:22 98.0 106 16 95 Room Air EKG EKG [] Radiology/Procedures Radiology/Procedures [] Impressions: PQRS Compliance statement: One or more of the following individualized dose reduction techniques were utilized for this examination: 1. Automated exposure control. 2. Adjustment of the mA and/or kV according to patient size. 3. Use of iterative reconstruction technique. Indication:Abdominal pain after eating. TECHNIQUE: CT abdomen and pelvis with IV contrast with multiplanar reformats. COMPARISON: 11/22/2018 FINDINGS: Heart is normal in size. No pericardial or pleural effusion. Clear lung bases. Liver, spleen, pancreas, adrenals and kidneys are within normal limits. Status post cholecystectomy. No enlarged retroperitoneal or pelvic adenopathy. No ascites. Diffusely dilated small bowel and large bowel loops are seen filled with fluid. Anastomotic sutures are seen in the right lower quadrant. No pneumoperitoneum or pneumatosis intestinalis. Uterus is present. Urinary bladder is within normal limits. Trace amount of free pelvic fluid. No suspicious bony lesion. impression: 1. Findings suggests bowel obstruction without discrete transition point seen. Electronically signed by: Pawel Davis DO (12/06/2018 8:54 PM) [facility] DICTATED AND SIGNED BY: PAWEL DAVIS DO DATE: 12/06/182053 CC: JUAN J HUNTER DO; SELINA FOX DO ~ Course & Med Decision Making Course & Med Decision Making Pertinent Labs and Imaging studies reviewed. (See chart for details) Since labs are unremarkable. Her CT scan again shows likely small bowel obstruction without discrete transition area. The patient has required 2 doses, 1mg each of Dilaudid for pain control. I discussed the patient with Dr. Young and he has accepted the patient for admission, but would prefer that she be admitted at [facility]. I discussed this with the patient and she is in agreement. She will go by ambulance. [] Dragon Disclaimer Dragon Disclaimer This electronic medical record was generated, in whole or in part, using a voice recognition dictation system. Departure Departure: Impression: Primary Impression: Small bowel obstruction Disposition: XFER SHT-TRM HOSP Condition: STABLE Referrals: SELINA FOX DO (PCP) JUAN J HUNTER DO December 06, 2018 18:54
[2018-12-06] MEDS ORDERED: IOHEXOL 240 MG/ML 50ML VIAL. PO ONE (19:00)
[2018-12-06] MEDS ORDERED: IOHEXOL 300 MG/ML 75 ML VIAL. IV ONE (19:00)
[2018-12-06 19:17] LABS: BASO % 1 % (0-3); EOS # 0.1 x10^3/uL (0.0-0.7); EOS % 1 % (0-3); HEMATOCRIT 44.6 % (36.0-47.0); HEMOGLOBIN 14.8 g/dL (12.0-15.5); LYMPH # 1.3 x10^3/uL (1.0-4.8); LYMPH % 14 % (24-48); MEAN CORPUSCULAR HEMOGLOBIN 29 pg (25-35); MEAN CORPUSCULAR HGB CONC 33 g/dL (31-37); MEAN CORPUSCULAR VOLUME 88 fL (79-100); MONO # 0.4 x10^3/uL (0.0-1.1); MONO % 4 % (0-9); NEUT # 7.7 x10^3uL (1.8-7.7); NEUT % 81 % (31-73); PLATELET COUNT 262 x10^3/uL (140-400); RED BLOOD COUNT 5.09 x10^6/uL (3.50-5.40); RED CELL DISTRIBUTION WIDTH 13.1 % (11.5-14.5); WHITE BLOOD COUNT 9.6 x10^3/uL (4.0-11.0)
[2018-12-06 19:27] LABS: ALBUMIN/GLOBULIN RATIO 1.1 (1.0-1.7); CALCIUM 9.8 mg/dL (8.5-10.1); CREATININE 0.6 mg/dL (0.6-1.0); GFR 111.3; TOTAL BILIRUBIN 0.3 mg/dL (0.2-1.0); TOTAL PROTEIN 7.5 g/dL (6.4-8.2)
--- NOTE | 2018-12-06 20:56 | RAD ---
PQRS Compliance statement: One or more of the following individualized dose reduction techniques were utilized for this examination: 1. Automated exposure control. 2. Adjustment of the mA and/or kV according to patient size. 3. Use of iterative reconstruction technique. Indication:Abdominal pain after eating. TECHNIQUE: CT abdomen and pelvis with IV contrast with multiplanar reformats. COMPARISON: 11/22/2018 FINDINGS: Heart is normal in size. No pericardial or pleural effusion. Clear lung bases. Liver, spleen, pancreas, adrenals and kidneys are within normal limits. Status post cholecystectomy. No enlarged retroperitoneal or pelvic adenopathy. No ascites. Diffusely dilated small bowel and large bowel loops are seen filled with fluid. Anastomotic sutures are seen in the right lower quadrant. No pneumoperitoneum or pneumatosis intestinalis. Uterus is present. Urinary bladder is within normal limits. Trace amount of free pelvic fluid. No suspicious bony lesion. impression: 1. Findings suggests bowel obstruction without discrete transition point seen. Electronically signed by: Pawel Davis DO (12/06/2018 8:54 PM) [facility]
[2018-12-06 21:25] VITALS: BP 116/64
== END 2018-12-06 22:12 | disposition short-term general hospital (02) ==
LOC: ER 18:07
DX: K56.609 Unspecified intestinal obstruction, unspecified as to partial versus complete obstruction (principal); Z90.89 Acquired absence of other organs; Z90.49 Acquired absence of other specified parts of digestive tract; Z88.8 Allergy status to other drugs, medicaments and biological substances
CPT/HCPCS: 36415; 74177; 80053; 85025; 96374; 96375; 96376; 99285; J1170; J2405; Q9966; Q9967; J7030

== ENCOUNTER 2019-02-05 18:48 | Emergency (ER) | payer OTHER ==
[~2019-02-05] VITALS: Ht 152.4 cm; Wt 58.1 kg
[2019-02-05] MEDS ORDERED: FAMOTIDINE 20 MG/2 ML VIAL IVP ONE (19:30)
[2019-02-05] MEDS ORDERED: ONDANSETRON PF 4 MG/2 ML VIAL. IV ONE ×2 (19:30→22:15)
[2019-02-05] MEDS ORDERED: IV NORMAL SALINE 1,000ML 1,000 ML IV ONE (19:30)
[2019-02-05] MEDS ORDERED: IOHEXOL 240 MG/ML 50ML VIAL. PO ONE (19:45)
[2019-02-05] MEDS ORDERED: IOHEXOL 300 MG/ML 75 ML VIAL. IV ONE (19:45)
[2019-02-05 20:06] LABS: BASO # 0.1 x10^3/uL (0.0-0.2); BASO % 1 % (0-3); EOS # 0.1 x10^3/uL (0.0-0.7); EOS % 3 % (0-3); HEMATOCRIT 45.1 % (36.0-47.0); HEMOGLOBIN 14.5 g/dL (12.0-15.5); LYMPH # 1.8 x10^3/uL (1.0-4.8); LYMPH % 40 % (24-48); MEAN CORPUSCULAR HEMOGLOBIN 29 pg (25-35); MEAN CORPUSCULAR HGB CONC 32 g/dL (31-37); MEAN CORPUSCULAR VOLUME 89 fL (79-100); MONO # 0.2 x10^3/uL (0.0-1.1); MONO % 5 % (0-9); NEUT # 2.3 x10^3uL (1.8-7.7); NEUT % 52 % (31-73); PLATELET COUNT 230 x10^3/uL (140-400); RED CELL DISTRIBUTION WIDTH 12.8 % (11.5-14.5); WHITE BLOOD COUNT 4.5 x10^3/uL (4.0-11.0)
[2019-02-05 20:14] LABS: BACTERIA,URINE 0 /HPF (0-FEW); BILIRUBIN,URINE NEG (NEG); CLARITY,URINE CLEAR; COLOR,URINE STRAW; GLUCOSE,URINE NEG (NEG); NITRITE,URINE NEG (NEG); RBC,URINE 0 /HPF (0-2); SQUAMOUS EPITHELIAL CELL,UR OCC /LPF; UROBILINOGEN,URINE 0.2 mg/dL (0.2 mg/dL); WBC,URINE 0 /HPF (0-4)
[2019-02-05 20:22] LABS: ALBUMIN/GLOBULIN RATIO 1.1 (1.0-1.7); CALCIUM 9.8 mg/dL (8.5-10.1); CREATININE 0.9 mg/dL (0.6-1.0); GFR 69.3; MAGNESIUM 2.2 mg/dL (1.8-2.4); TOTAL BILIRUBIN 0.2 mg/dL (0.2-1.0); TOTAL PROTEIN 7.8 g/dL (6.4-8.2)
[2019-02-05 21:03] LABS: U PREG PATIENT NEGATIVE (NEG)
--- NOTE | 2019-02-05 22:31 | RAD ---
INDICATION: Abdomen pain COMPARISON: December 06, 2018 TECHNIQUE: Axial CT images obtained through the abdomen and pelvis with contrast. One or more of the following individualized dose reduction techniques were utilized for this examination: 1. Automated exposure control; 2. Adjustment of the mA and/or kV according to patient size; 3. Use of iterative reconstruction technique. FINDINGS: Abdominal aorta not aneurysmal. Subcentimeter low-density lesion near the hepatic dome. Incompletely characterized. Postcholecystectomy changes. No peripancreatic fluid collection. Spleen unremarkable. No hydronephrosis. Urinary bladder is partially distended. Dilated loops of small bowel are identified measuring up to approximately 4 cm with some edema to the mesentery and a small amount of adjacent fluid. There is also distention of the stomach. There is some wall thickening of a portion of the small bowel wall. Sclerosis at the sacroiliac joints. Causes such as chronic sacroiliitis within differential. IMPRESSION: 1. Dilated loops of small bowel are identified concerning for small bowel obstruction. There is edema and fluid within the mesentery. There is also some wall thickening of some of the small bowel loops which appear inflamed. This is a focal process therefore causes such as a internal hernia or closed loop are within the differential. Electronically signed by: Georgi Kebede MD (02/05/2019 10:28 PM) [facility]
--- NOTE | 2019-02-05 22:35 | PHYS DOC ---
Past History Past Medical History: No Pertinent History Past Surgical History: Appendectomy, Cholecystectomy Alcohol Use: None Drug Use: None Adult General Chief Complaint Chief Complaint: ABDOMINAL PAIN HPI HPI Patient is a [age] year old [sex] who presents with [] Review of Systems Review of Systems Constitutional: Denies fever or chills [] Eyes: Denies change in visual acuity, redness, or eye pain [] HENT: Denies nasal congestion or sore throat [] Respiratory: Denies cough or shortness of breath [] Cardiovascular: No additional information not addressed in HPI [] GI: Denies abdominal pain, nausea, vomiting, bloody stools or diarrhea [] : Denies dysuria or hematuria [] Musculoskeletal: Denies back pain or joint pain [] Integument: Denies rash or skin lesions [] Neurologic: Denies headache, focal weakness or sensory changes [] Endocrine: Denies polyuria or polydipsia [] All other systems were reviewed and found to be within normal limits, except as documented in this note. Current Medications Current Medications Current Medications Medications (Trade) Dose Ordered Sig/Elin Start Time Stop Time Status Last Admin Dose Admin Famotidine (Pepcid Vial) 20 mg 1X ONCE 02/05/19 19:30 02/05/19 19:44 DC 02/05/19 20:13 20 MG Fentanyl Citrate (Fentanyl 2ml Vial) 50 mcg 1X ONCE 02/05/19 22:15 02/05/19 22:16 DC 02/05/19 22:27 50 MCG Iohexol (Omnipaque 240 Mg/ml) 30 ml 1X ONCE 02/05/19 19:45 02/05/19 19:46 DC 02/05/19 21:06 30 ML Iohexol (Omnipaque 300 Mg/ml) 75 ml 1X ONCE 02/05/19 19:45 02/05/19 19:46 DC 02/05/19 21:06 75 ML Ondansetron HCl (Zofran) 4 mg 1X ONCE 02/05/19 22:15 02/05/19 22:16 DC 02/05/19 22:26 4 MG Sodium Chloride 1,000 ml @ 1,000 mls/hr 1X ONCE 02/05/19 19:30 02/05/19 20:29 DC 02/05/19 19:30 1,000 MLS/HR Allergies Allergies Allergies Coded Allergies Type Severity Reaction Last Updated Verified metoclopramide Allergy Severe Shortness of Air 01/02/18 Yes promethazine Allergy Unknown 12/06/18 Yes Physical Exam Physical Exam Constitutional: Well developed, well nourished, no acute distress, non-toxic appearance. [] HENT: Normocephalic, atraumatic, bilateral external ears normal, oropharynx moist, no oral exudates, nose normal. [] Eyes: PERRLA, EOMI, conjunctiva normal, no discharge. [] Neck: Normal range of motion, no tenderness, supple, no stridor. [] Cardiovascular:Heart rate regular rhythm, no murmur [] Lungs & Thorax: Bilateral breath sounds clear to auscultation [] Abdomen: Bowel sounds normal, soft, no tenderness, no masses, no pulsatile masses. [] Skin: Warm, dry, no erythema, no rash. [] Back: No tenderness, no CVA tenderness. [] Extremities: No tenderness, no cyanosis, no clubbing, ROM intact, no edema. [] Neurologic: Alert and oriented X 3, normal motor function, normal sensory function, no focal deficits noted. [] Psychologic: Affect normal, judgement normal, mood normal. [] Current Patient Data Vital Signs Vital Signs Date Time Temp Pulse Resp B/P (MAP) Pulse Ox O2 Delivery O2 Flow Rate FiO2 02/05/19 22:27 20 100 Room Air 02/05/19 19:07 98.4 94 Lab Results Laboratory Tests Test 02/05/19 19:50 02/05/19 19:58 White Blood Count 4.5 x10^3/uL (4.0-11.0) Red Blood Count 5.10 x10^6/uL (3.50-5.40) Hemoglobin 14.5 g/dL (12.0-15.5) Hematocrit 45.1 % (36.0-47.0) Mean Corpuscular Volume 89 fL (79-100) Mean Corpuscular Hemoglobin 29 pg (25-35) Mean Corpuscular Hemoglobin Concent 32 g/dL (31-37) Red Cell Distribution Width 12.8 % (11.5-14.5) Platelet Count 230 x10^3/uL (140-400) Neutrophils (%) (Auto) 52 % (31-73) Lymphocytes (%) (Auto) 40 % (24-48) Monocytes (%) (Auto) 5 % (0-9) Eosinophils (%) (Auto) 3 % (0-3) Basophils (%) (Auto) 1 % (0-3) Neutrophils # (Auto) 2.3 x10^3uL (1.8-7.7) Lymphocytes # (Auto) 1.8 x10^3/uL (1.0-4.8) Monocytes # (Auto) 0.2 x10^3/uL (0.0-1.1) Eosinophils # (Auto) 0.1 x10^3/uL (0.0-0.7) Basophils # (Auto) 0.1 x10^3/uL (0.0-0.2) Sodium Level 141 mmol/L (136-145) Potassium Level 4.0 mmol/L (3.5-5.1) Chloride Level 104 mmol/L (98-107) Carbon Dioxide Level 33 mmol/L (21-32) H Anion Gap 4 (6-14) L Blood Urea Nitrogen 12 mg/dL (7-20) Creatinine 0.9 mg/dL (0.6-1.0) Estimated GFR (Cockcroft-Gault) 69.3 BUN/Creatinine Ratio 13 (6-20) Glucose Level 99 mg/dL (70-99) Calcium Level 9.8 mg/dL (8.5-10.1) Magnesium Level 2.2 mg/dL (1.8-2.4) Total Bilirubin 0.2 mg/dL (0.2-1.0) Aspartate Amino Transferase (AST) 19 U/L (15-37) Alanine Aminotransferase (ALT) 26 U/L (14-59) Alkaline Phosphatase 88 U/L (46-116) Total Protein 7.8 g/dL (6.4-8.2) Albumin 4.0 g/dL (3.4-5.0) Albumin/Globulin Ratio 1.1 (1.0-1.7) Lipase 143 U/L (73-393) Urine Collection Type Unknown Urine Color Straw Urine Clarity Clear Urine pH 8.0 Urine Specific [place] 1.015 Urine Protein Neg (NEG-TRACE) Urine Glucose (UA) Neg mg/dL (NEG) Urine Ketones (Stick) Neg mg/dL (NEG) Urine Blood Neg (NEG) Urine Nitrite Neg (NEG) Urine Bilirubin Neg (NEG) Urine Urobilinogen Dipstick 0.2 mg/dL (0.2 mg/dL) Urine Leukocyte Esterase Neg (NEG) Urine RBC 0 /HPF (0-2) Urine WBC 0 /HPF (0-4) Urine Squamous Epithelial Cells Occ /LPF Urine Bacteria 0 /HPF (0-FEW) Urine Test Negative (NEG) EKG EKG [] Radiology/Procedures Radiology/Procedures [] Course & Med Decision Making Course & Med Decision Making Pertinent Labs and Imaging studies reviewed. (See chart for details) [] Dragon Disclaimer Dragon Disclaimer This electronic medical record was generated, in whole or in part, using a voice recognition dictation system. Departure Departure: Impression: Primary Impression: Small bowel obstruction Disposition: 05 TRANSFER OTHER Condition: STABLE Referrals: SELINA FOX DO (PCP) LENARD CARR DO Feb 05, 2019 22:35
[2019-02-05 23:56] VITALS: BP 116/73
== END 2019-02-06 00:23 | disposition short-term general hospital (02) ==
LOC: ER 18:48
DX: K56.609 Unspecified intestinal obstruction, unspecified as to partial versus complete obstruction (principal); Z90.89 Acquired absence of other organs; Z90.49 Acquired absence of other specified parts of digestive tract; Z88.8 Allergy status to other drugs, medicaments and biological substances
CPT/HCPCS: 36415; 74177; 80053; 81001; 81025; 83690; 83735; 85025; 96374; 96375; 96376; 99285; J2405; J3010; J3490; Q9966; Q9967; J7030